=== PATIENT | male | born 1955 | race Caucasian/White ===

== ENCOUNTER 2016-05-13 10:57 | Inpatient (IN) | payer OTHER ==
[~2016-05-13] VITALS: Ht 180.3 cm; Wt 139.3 kg
[~2016-05-13 10:57] MED LIST: APIDRA100 UNIT/1 SC; CARVEDILOL6.25 MG PO; FUROSEMIDE40 MG PO; LANTUS 3 M100 UNITS1 SC; LEVEMIR FL100 UNIT/1 SC; LISINOPRIL20 MG PO; LO-DOSE ASPIRIN81 M1 PO; METFORMIN HCL1000 MG PO; NOVOLOG PE100 UNITS/ SC; SIMVASTATIN10 MG PO; SPIRONOLACTONE25 MG PO; TRAMADOL HCL50 MG PO; TYLENOL PM1 CAPLET PO; VIAGRA50 MG PO; ZYRTEC10 M2 PO
[2016-05-13 11:57] LABS: HEMATOCRIT 43.4 % (38.0-50.0); MCH 28.8 PG (29.0-34.0); MCHC 31.8 G/DL (30.0-36.0); MCV 90.6 FL (86-99); MEAN PLAT.VOLUME 10.2 uM^3 (9.0-12.4); PLATELET COUNT 169 K/uL (156-360); RBC DIS.WIDTH-CV 13.9 % (11.8-14.6); RBC DIS.WIDTH-SD 44.5 % (39-53); RED BLOOD COUNT 4.79 M/uL (4.00-5.50); WHITE BLOOD COUNT 7.5 K/uL (4.1-10.2)
[2016-05-13 12:08] LABS: CHLORIDE 103 mEq/L (99-109); POTASSIUM 4.2 mEq/L (3.7-5.4); SODIUM 137 mEq/L (136-147)
[2016-05-13 12:11] LABS: ANION GAP 9 MEQ/L (2-14)
[2016-05-13 12:14] LABS: GFR ESTIMATE (CALCULATED) 47 mL/min/; GLUCOSE 450 mg/dL (70-99)
[2016-05-13 12:15] LABS: UREA NITROGEN (BUN) 19 mg/dL (9-23)
[2016-05-13 12:17] LABS: TROP-I INTERPRETATION NEGATIVE
[2016-05-13 12:52] LABS: ADD MIUA? YES; BILIRUBIN NEGATIVE; BLOOD MODERATE; COLOR YELLOW ((YELLOW)); GLUCOSE (STRIP) >=1000; KETONES NEGATIVE; LEUKOCYTES NEGATIVE; NITRITE NEGATIVE; PROTEIN (STRIP) >=300; SPECIFIC GRAVITY 1.034 (1.000-1.030)
[2016-05-13 13:23] LABS: RED BLOOD CELLS RARE /HPF (0-5)
[2016-05-13 13:24] LABS: BACTERIA RARE; CASTS NONE SEEN /LPF; CRYSTALS NONE SEEN; EPITHELIAL CELLS NONE SEEN; MUCUS NONE SEEN; UCUL ADDED? NO; WHITE BLOOD CELLS NONE SEEN /HPF (0-5)
[2016-05-13 16:15] VITALS: BP 138/100
[2016-05-13 17:02] LABS: POINT-OF-CARE USER ID NUTSLF44
[2016-05-13 19:10] VITALS: BP 173/84
[2016-05-13 20:03] LABS: TROP-I INTERPRETATION NEGATIVE; TROPONIN-I 0.12 ng/mL (0.0-0.30)
[2016-05-13 21:08] LABS: POINT-OF-CARE METER ID UU14174216
[2016-05-13 23:39] VITALS: BP 186/99
[2016-05-14 04:29] VITALS: BP 162/92
[2016-05-14 07:05] LABS: HEMATOCRIT 41.8 % (38.0-50.0); MCH 28.4 PG (29.0-34.0); MCHC 30.9 G/DL (30.0-36.0); MCV 92.1 FL (86-99); MEAN PLAT.VOLUME 10.2 uM^3 (9.0-12.4); PLATELET COUNT 166 K/uL (156-360); RBC DIS.WIDTH-SD 47.1 % (39-53); RED BLOOD COUNT 4.54 M/uL (4.00-5.50); WHITE BLOOD COUNT 5.7 K/uL (4.1-10.2)
[2016-05-14 07:23] LABS: ALKALINE PHOSPHATASE 57 IU/L (3-129); ANION GAP 7 MEQ/L (2-14); CHLORIDE 101 MEQ/L (99-109); GFR ESTIMATE (CALCULATED) 55 mL/min/; GLUCOSE 222 mg/dL (70-99); HDL CHOLESTEROL 32 MG/DL (Desirable>=40); LDL CHOLESTEROL 89 mg/dL (Desirable<100); MAGNESIUM 1.8 mg/dl (1.3-2.7); NON-HDL CHOLESTEROL 110 mg/dL (Desirable<160); POTASSIUM 3.6 MEQ/L (3.7-5.4); SAMPLE HEMOLYSIS CHECK 0; SAMPLE ICTERIC CHECK 0; SAMPLE LIPEMIA CHECK 0; SODIUM 137 MEQ/L (136-147); TOTAL BILIRUBIN 0.7 MG/DL (0.0-1.0); TOTAL CHOLESTEROL 142 mg/dL (Desirable<200); TRIGLYCERIDES 105 MG/DL (Normal: <150); UREA NITROGEN (BUN) 22 mg/dL (9-23); URIC ACID 8.3 mg/dL (3.1-9.2)
[2016-05-14 07:33] VITALS: BP 137/83
[2016-05-14 07:35] LABS: BASOPHIL COUNT 0.1 K/uL (0-0.1); EOSINOPHIL (%) 8.6 % (0-5); EOSINOPHIL COUNT 0.5 K/uL (0-0.3); IMMATURE GRANULOCYTE (%) 0.2 % (0.0-0.7); MONOCYTE COUNT 1.1 K/uL (0-0.8); NEUTROPHIL (%) 53.5 % (45-76)
[2016-05-14 08:11] LABS: POINT-OF-CARE METER ID UU13113698
[2016-05-14 08:32] LABS: Estimated Average Glucose 415 mg/dL (70-123)
[2016-05-14 08:37] LABS: HEMOGLOBIN A1c (GLYCOHEMOGLOB) 16.1 % HGB (Below 5.7)
[2016-05-14 11:40] LABS: POINT-OF-CARE METER ID UU13113702
[2016-05-14 11:55] VITALS: BP 142/72
[2016-05-14 11:55] LABS: D-DIMER ELISA 0.58 mg/L FEU (< 0.57)
[2016-05-14 16:30] VITALS: BP 140/85
[2016-05-14 19:50] VITALS: BP 143/79
[2016-05-14 22:29] LABS: POINT-OF-CARE METER ID UU13113807; POINT-OF-CARE USER ID AHSUCEG
[2016-05-14 23:35] VITALS: BP 130/70
[2016-05-15 04:05] VITALS: BP 132/80
[2016-05-15 07:27] LABS: EOSINOPHIL (%) 7.5 % (0-5); EOSINOPHIL COUNT 0.5 K/uL (0-0.3); HEMATOCRIT 43.3 % (38.0-50.0); IMMATURE GRANULOCYTE (%) 0.8 % (0.0-0.7); IMMATURE GRANULOCYTE COUNT 0.1 K/uL; LYMPHOCYTE COUNT 0.9 K/uL (1.0-2.8); MCH 28.9 PG (29.0-34.0); MCHC 30.9 G/DL (30.0-36.0); MCV 93.3 FL (86-99); MEAN PLAT.VOLUME 10.8 uM^3 (9.0-12.4); MONOCYTE (%) 15.3 % (3-12); MONOCYTE COUNT 0.9 K/uL (0-0.8); NEUTROPHIL (%) 60.3 % (45-76); NEUTROPHIL COUNT 3.6 K/uL (1.8-6.4); PLATELET COUNT 161 K/uL (156-360); RBC DIS.WIDTH-CV 14.2 % (11.8-14.6); RBC DIS.WIDTH-SD 48.2 % (39-53); RED BLOOD COUNT 4.64 M/uL (4.00-5.50)
[2016-05-15 07:48] LABS: POINT-OF-CARE METER ID UU14149396
[2016-05-15 07:59] LABS: ALKALINE PHOSPHATASE 55 IU/L (3-129); ANION GAP 9 MEQ/L (2-14); CHLORIDE 103 MEQ/L (99-109); GFR ESTIMATE (CALCULATED) 55 mL/min/; GLUCOSE 277 mg/dL (70-99); SAMPLE HEMOLYSIS CHECK 0; SAMPLE ICTERIC CHECK 0; SAMPLE LIPEMIA CHECK 0; SODIUM 137 MEQ/L (136-147); TOTAL BILIRUBIN 0.6 MG/DL (0.0-1.0); UREA NITROGEN (BUN) 20 mg/dL (9-23)
[2016-05-15 08:00] VITALS: BP 136/84
[2016-05-15 08:01] LABS: POTASSIUM 4.9 MEQ/L (3.7-5.4)
[2016-05-15 11:49] LABS: POINT-OF-CARE METER ID UU14149396
[2016-05-15 12:00] VITALS: BP 129/77
[2016-05-15 16:00] VITALS: BP 140/82
[2016-05-15 16:23] LABS: POINT-OF-CARE METER ID UU14149396
[2016-05-15 17:32] LABS: UR CREATININE CONCENTRATION 109.2 MG/DL
[2016-05-15 20:00] VITALS: BP 133/70
[2016-05-15 20:49] LABS: POINT-OF-CARE METER ID UU14149396
[2016-05-16] VITALS: BP 126/77
[2016-05-16 04:00] VITALS: BP 131/79
[2016-05-16 04:22] LABS: HEMATOCRIT 44.6 % (38.0-50.0); MCH 28.9 PG (29.0-34.0); MCHC 31.2 G/DL (30.0-36.0); MCV 92.7 FL (86-99); MEAN PLAT.VOLUME 10.5 uM^3 (9.0-12.4); PLATELET COUNT 177 K/uL (156-360); RBC DIS.WIDTH-SD 45.9 % (39-53); RED BLOOD COUNT 4.81 M/uL (4.00-5.50); WHITE BLOOD COUNT 6.6 K/uL (4.1-10.2)
[2016-05-16 04:30] LABS: EOSINOPHIL (%) 4.8 % (0-5); EOSINOPHIL COUNT 0.3 K/uL (0-0.3); IMMATURE GRANULOCYTE (%) 0.5 % (0.0-0.7); IMMATURE GRANULOCYTE COUNT 0.3 K/uL; LYMPHOCYTE COUNT 1.1 K/uL (1.0-2.8); MONOCYTE (%) 16.2 % (3-12); MONOCYTE COUNT 1.1 K/uL (0-0.8); NEUTROPHIL (%) 61.7 % (45-76); NEUTROPHIL COUNT 4.1 K/uL (1.8-6.4)
[2016-05-16 04:37] LABS: CHLORIDE 102 mEq/L (99-109); POTASSIUM 5.6 mEq/L (3.7-5.4); SODIUM 138 mEq/L (136-147)
[2016-05-16 04:39] LABS: GLUCOSE 219 mg/dL (70-99)
[2016-05-16 04:40] LABS: ANION GAP 9 MEQ/L (2-14)
[2016-05-16 04:41] LABS: TOTAL BILIRUBIN 0.7 mg/dL (0.0-1.0)
[2016-05-16 04:43] LABS: ALKALINE PHOSPHATASE 59 IU/L (3-129); GFR ESTIMATE (CALCULATED) 41 mL/min/
[2016-05-16 04:44] LABS: UREA NITROGEN (BUN) 26 mg/dL (9-23)
[2016-05-16 07:00] VITALS: BP 137/81
[2016-05-16 07:10] LABS: POINT-OF-CARE METER ID UU14149396
[2016-05-16 11:20] LABS: POINT-OF-CARE METER ID UU14149396
[2016-05-16 11:32] VITALS: BP 147/88
[2016-05-16 13:11] LABS: ANION GAP 9 MEQ/L (2-14); CHLORIDE 102 MEQ/L (99-109); GFR ESTIMATE (CALCULATED) 47 mL/min/; GLUCOSE 219 mg/dL (70-99); POTASSIUM 4.5 MEQ/L (3.7-5.4); SAMPLE HEMOLYSIS CHECK 0; SAMPLE ICTERIC CHECK 0; SAMPLE LIPEMIA CHECK 0; SODIUM 138 MEQ/L (136-147); UREA NITROGEN (BUN) 25 mg/dL (9-23)
[2016-05-16 15:00] VITALS: BP 147/95
[2016-05-16 16:12] LABS: POINT-OF-CARE METER ID UU14149398
[2016-05-16 19:40] VITALS: BP 146/77
[2016-05-16 21:26] LABS: POINT-OF-CARE METER ID UU14149398
[2016-05-17] VITALS (7 sets, daily range): BP systolic 122–152; BP diastolic 70–92
[2016-05-17 04:17] LABS: EOSINOPHIL (%) 2.5 % (0-5); EOSINOPHIL COUNT 0.2 K/uL (0-0.3); HEMATOCRIT 45.8 % (38.0-50.0); IMMATURE GRANULOCYTE (%) 0.6 % (0.0-0.7); IMMATURE GRANULOCYTE COUNT 0.4 K/uL; LYMPHOCYTE COUNT 1.4 K/uL (1.0-2.8); MCH 28.7 PG (29.0-34.0); MCHC 31.7 G/DL (30.0-36.0); MCV 90.5 FL (86-99); MEAN PLAT.VOLUME 10.3 uM^3 (9.0-12.4); MONOCYTE (%) 15.3 % (3-12); NEUTROPHIL (%) 58.9 % (45-76); NEUTROPHIL COUNT 3.7 K/uL (1.8-6.4); PLATELET COUNT 174 K/uL (156-360); RBC DIS.WIDTH-SD 45.6 % (39-53); RED BLOOD COUNT 5.06 M/uL (4.00-5.50); WHITE BLOOD COUNT 6.3 K/uL (4.1-10.2)
[2016-05-17 04:38] LABS: CHLORIDE 104 mEq/L (99-109); POTASSIUM 3.9 mEq/L (3.7-5.4); SODIUM 138 mEq/L (136-147)
[2016-05-17 04:40] LABS: GLUCOSE 159 mg/dL (70-99)
[2016-05-17 04:41] LABS: ANION GAP 10 MEQ/L (2-14)
[2016-05-17 04:42] LABS: TOTAL BILIRUBIN 0.8 mg/dL (0.0-1.0)
[2016-05-17 04:44] LABS: ALKALINE PHOSPHATASE 58 IU/L (3-129); GFR ESTIMATE (CALCULATED) 55 mL/min/
[2016-05-17 04:45] LABS: UREA NITROGEN (BUN) 26 mg/dL (9-23)
[2016-05-17 08:08] LABS: POINT-OF-CARE METER ID UU14149398
[2016-05-17 12:01] LABS: POINT-OF-CARE METER ID UU14149396
[2016-05-17 16:28] LABS: POINT-OF-CARE METER ID UU14149396
[2016-05-17 21:39] LABS: POINT-OF-CARE METER ID UU14149396
[2016-05-18 01:37] LABS: C DIFF TOXIN NEGATIVE (NEGATIVE)
[2016-05-18 01:42] LABS: PROBE CHECK PASS; SPECIMEN PROCESSING CONTROL PASS
[2016-05-18 04:50] VITALS: BP 134/83
[2016-05-18 06:34] LABS: BASOPHIL COUNT 0.1 K/uL (0-0.1); EOSINOPHIL (%) 3.8 % (0-5); EOSINOPHIL COUNT 0.3 K/uL (0-0.3); HEMATOCRIT 47.4 % (38.0-50.0); IMMATURE GRANULOCYTE (%) 0.6 % (0.0-0.7); IMMATURE GRANULOCYTE COUNT 0.1 K/uL; LYMPHOCYTE COUNT 1.7 K/uL (1.0-2.8); MCHC 31.2 G/DL (30.0-36.0); MCV 92.9 FL (86-99); MONOCYTE (%) 18.2 % (3-12); MONOCYTE COUNT 1.5 K/uL (0-0.8); NEUTROPHIL (%) 56.5 % (45-76); NEUTROPHIL COUNT 4.6 K/uL (1.8-6.4); PLATELET COUNT 171 K/uL (156-360); RBC DIS.WIDTH-SD 47.8 % (39-53)
[2016-05-18 06:35] LABS: WHITE BLOOD COUNT 8.2 K/uL (4.1-10.2)
[2016-05-18 06:56] LABS: ALKALINE PHOSPHATASE 56 IU/L (3-129); ANION GAP 12 MEQ/L (2-14); CHLORIDE 101 MEQ/L (99-109); GLUCOSE 144 mg/dL (70-99); SAMPLE HEMOLYSIS CHECK 0; SAMPLE ICTERIC CHECK 0; SAMPLE LIPEMIA CHECK 0; SODIUM 140 MEQ/L (136-147); UREA NITROGEN (BUN) 31 mg/dL (9-23)
[2016-05-18 06:57] LABS: GFR ESTIMATE (CALCULATED) 38 mL/min/; TOTAL BILIRUBIN 0.8 MG/DL (0.0-1.0)
[2016-05-18 07:33] LABS: POINT-OF-CARE METER ID UU14149398
[2016-05-18 07:53] VITALS: BP 123/72
[2016-05-18 11:37] LABS: POINT-OF-CARE METER ID UU14149398
[2016-05-18 11:59] VITALS: BP 108/61
[2016-05-18 15:00] VITALS: BP 140/76
[2016-05-18 17:22] LABS: POINT-OF-CARE METER ID UU14149396
[2016-05-18 21:51] LABS: POINT-OF-CARE METER ID UU14149398
[2016-05-19] VITALS (7 sets, daily range): BP systolic 121–174; BP diastolic 40–100
[2016-05-19 07:05] LABS: ANION GAP 15 MEQ/L (2-14); CHLORIDE 100 MEQ/L (99-109); GFR ESTIMATE (CALCULATED) 41 mL/min/; SAMPLE HEMOLYSIS CHECK 1; SAMPLE ICTERIC CHECK 0; SAMPLE LIPEMIA CHECK 0; SODIUM 135 MEQ/L (136-147); UREA NITROGEN (BUN) 37 mg/dL (9-23)
[2016-05-19 07:07] LABS: GLUCOSE 257 mg/dL (70-99); POTASSIUM 4.5 MEQ/L (3.7-5.4)
[2016-05-19 07:52] LABS: POINT-OF-CARE METER ID UU14149396; POINT-OF-CARE USER ID 606021404
[2016-05-19 12:02] LABS: POINT-OF-CARE METER ID UU14149398
[2016-05-19 21:59] LABS: POINT-OF-CARE METER ID UU14149398; POINT-OF-CARE USER ID STWHLR41
[2016-05-20 03:30] VITALS: BP 145/87
[2016-05-20 06:32] LABS: ANION GAP 11 MEQ/L (2-14); CHLORIDE 98 MEQ/L (99-109); GFR ESTIMATE (CALCULATED) 34 mL/min/; GLUCOSE 204 mg/dL (70-99); POTASSIUM 4.4 MEQ/L (3.7-5.4); SAMPLE HEMOLYSIS CHECK 2; SAMPLE ICTERIC CHECK 0; SAMPLE LIPEMIA CHECK 0; SODIUM 139 MEQ/L (136-147); UREA NITROGEN (BUN) 50 mg/dL (9-23)
[2016-05-20 07:48] LABS: POINT-OF-CARE METER ID UU14149398
[2016-05-20 08:02] VITALS: BP 109/71
[2016-05-20 11:37] LABS: POINT-OF-CARE METER ID UU14149396
[2016-05-20 12:29] VITALS: BP 121/76
[2016-05-20 16:15] VITALS: BP 124/88
[2016-05-20 16:54] LABS: POINT-OF-CARE METER ID UU14149398
[2016-05-20 20:00] VITALS: BP 132/71
[2016-05-20 21:49] LABS: POINT-OF-CARE METER ID UU14149398
[2016-05-21] VITALS (7 sets, daily range): BP systolic 115–146; BP diastolic 62–85
[2016-05-21 08:10] LABS: HEMATOCRIT 48.1 % (38.0-50.0); MCHC 31.2 G/DL (30.0-36.0); MCV 89.7 FL (86-99); RBC DIS.WIDTH-CV 13.6 % (11.8-14.6); RBC DIS.WIDTH-SD 44.7 % (39-53); RED BLOOD COUNT 5.36 M/uL (4.00-5.50)
[2016-05-21 08:15] LABS: MEAN PLAT.VOLUME 10.4 uM^3 (9.0-12.4); PLATELET COUNT 243 K/uL (156-360)
[2016-05-21 10:57] LABS: ANION GAP 12 MEQ/L (2-14); CHLORIDE 98 MEQ/L (99-109); POTASSIUM 4.8 MEQ/L (3.7-5.4); SAMPLE HEMOLYSIS CHECK 2; SAMPLE ICTERIC CHECK 0; SAMPLE LIPEMIA CHECK 0; SODIUM 141 MEQ/L (136-147)
[2016-05-21 11:02] LABS: GFR ESTIMATE (CALCULATED) 32 mL/min/; GLUCOSE 190 mg/dL (70-99); UREA NITROGEN (BUN) 60 mg/dL (9-23)
[2016-05-21 11:54] LABS: POINT-OF-CARE METER ID UU14149398; POINT-OF-CARE USER ID 606021404
[2016-05-21 16:55] LABS: POINT-OF-CARE METER ID UU13113807
[2016-05-22 00:09] LABS: POINT-OF-CARE METER ID UU14149398
[2016-05-22 03:59] VITALS: BP 139/60
[2016-05-22 07:17] LABS: ANION GAP 15 MEQ/L (2-14); CHLORIDE 97 MEQ/L (99-109); GFR ESTIMATE (CALCULATED) 34 mL/min/; GLUCOSE 199 mg/dL (70-99); POTASSIUM 4.1 MEQ/L (3.7-5.4); SAMPLE HEMOLYSIS CHECK 0; SAMPLE ICTERIC CHECK 0; SAMPLE LIPEMIA CHECK 0; SODIUM 141 MEQ/L (136-147); UREA NITROGEN (BUN) 62 mg/dL (9-23)
[2016-05-22 08:17] VITALS: BP 129/64
[2016-05-22 08:23] LABS: POINT-OF-CARE METER ID UU14149398
[2016-05-22 11:14] LABS: POINT-OF-CARE METER ID UU14149398
[2016-05-22 12:25] LABS: POINT-OF-CARE METER ID UU14149398
[2016-05-22 12:34] VITALS: BP 128/81
[2016-05-22 16:59] VITALS: BP 130/65
[2016-05-22 17:10] LABS: POINT-OF-CARE METER ID UU14149398
[2016-05-22 20:00] VITALS: BP 167/74
[2016-05-22 21:32] LABS: POINT-OF-CARE METER ID UU14149398
[2016-05-22 23:55] VITALS: BP 142/72
[2016-05-23 03:40] VITALS: BP 117/87
[2016-05-23 05:40] LABS: ANION GAP 13 MEQ/L (2-14); CHLORIDE 99 MEQ/L (99-109); GFR ESTIMATE (CALCULATED) 32 mL/min/; GLUCOSE 167 mg/dL (70-99); POTASSIUM 3.7 MEQ/L (3.7-5.4); SAMPLE HEMOLYSIS CHECK 0; SAMPLE ICTERIC CHECK 0; SAMPLE LIPEMIA CHECK 0; SODIUM 140 MEQ/L (136-147); UREA NITROGEN (BUN) 72 mg/dL (9-23)
[2016-05-23 07:59] VITALS: BP 146/75
[2016-05-23 08:40] LABS: POINT-OF-CARE METER ID UU13113807
[2016-05-23 11:25] VITALS: BP 139/65
[2016-05-23 12:15] LABS: POINT-OF-CARE METER ID UU14149398
[2016-05-23 20:00] VITALS: BP 140/80
[2016-05-23 21:29] LABS: POINT-OF-CARE METER ID UU14149398
[2016-05-23 21:48] LABS: POINT-OF-CARE METER ID UU13113807
[2016-05-24] VITALS (7 sets, daily range): BP systolic 106–145; BP diastolic 66–92
[2016-05-24 07:03] LABS: MCHC 31.3 G/DL (30.0-36.0); MCV 89.5 FL (86-99); MEAN PLAT.VOLUME 10.6 uM^3 (9.0-12.4); PLATELET COUNT 284 K/uL (156-360); RBC DIS.WIDTH-CV 13.8 % (11.8-14.6); RBC DIS.WIDTH-SD 45.3 % (39-53); RED BLOOD COUNT 5.25 M/uL (4.00-5.50); WHITE BLOOD COUNT 7.7 K/uL (4.1-10.2)
[2016-05-24 07:16] LABS: EOSINOPHIL (%) 2.2 % (0-5); EOSINOPHIL COUNT 0.2 K/uL (0-0.3); IMMATURE GRANULOCYTE (%) 0.8 % (0.0-0.7); IMMATURE GRANULOCYTE COUNT 0.1 K/uL; LYMPHOCYTE COUNT 1.4 K/uL (1.0-2.8); MONOCYTE (%) 27.3 % (3-12); MONOCYTE COUNT 2.1 K/uL (0-0.8); NEUTROPHIL (%) 51.2 % (45-76)
[2016-05-24 07:26] LABS: ANION GAP 13 MEQ/L (2-14); CHLORIDE 99 MEQ/L (99-109); GFR ESTIMATE (CALCULATED) 32 mL/min/; GLUCOSE 163 mg/dL (70-99); POTASSIUM 3.7 MEQ/L (3.7-5.4); SAMPLE HEMOLYSIS CHECK 0; SAMPLE ICTERIC CHECK 0; SAMPLE LIPEMIA CHECK 0; SODIUM 138 MEQ/L (136-147); UREA NITROGEN (BUN) 85 mg/dL (9-23)
[2016-05-24 08:24] LABS: POINT-OF-CARE METER ID UU14149398
[2016-05-24 12:28] LABS: POINT-OF-CARE METER ID UU14149398
[2016-05-24 17:01] LABS: POINT-OF-CARE METER ID UU14149398
[2016-05-24 21:00] LABS: POINT-OF-CARE METER ID UU14149398
[2016-05-25 04:02] VITALS: BP 136/82
[2016-05-25 05:55] LABS: POINT-OF-CARE METER ID UU13113807
[2016-05-25 06:11] LABS: HEMATOCRIT 46.6 % (38.0-50.0); MCH 29.4 PG (29.0-34.0); MCHC 32.6 G/DL (30.0-36.0); MCV 90.1 FL (86-99); MEAN PLAT.VOLUME 11.1 uM^3 (9.0-12.4); PLATELET COUNT 273 K/uL (156-360); RBC DIS.WIDTH-CV 13.7 % (11.8-14.6); RBC DIS.WIDTH-SD 45.3 % (39-53); RED BLOOD COUNT 5.17 M/uL (4.00-5.50); WHITE BLOOD COUNT 9.2 K/uL (4.1-10.2)
[2016-05-25 06:30] LABS: ANION GAP 14 MEQ/L (2-14); CHLORIDE 99 MEQ/L (99-109); GFR ESTIMATE (CALCULATED) 32 mL/min/; GLUCOSE 156 mg/dL (70-99); POTASSIUM 3.8 MEQ/L (3.7-5.4); SAMPLE HEMOLYSIS CHECK 0; SAMPLE ICTERIC CHECK 0; SAMPLE LIPEMIA CHECK 0; SODIUM 140 MEQ/L (136-147); UREA NITROGEN (BUN) 94 mg/dL (9-23)
[2016-05-25 07:15] VITALS: BP 94/65
[2016-05-25 07:39] LABS: EOSINOPHIL COUNT 0.1 K/uL (0-0.3); IMMATURE GRANULOCYTE (%) 0.8 % (0.0-0.7); IMMATURE GRANULOCYTE COUNT 0.1 K/uL; MONOCYTE (%) 16.4 % (3-12); MONOCYTE COUNT 1.5 K/uL (0-0.8); NEUTROPHIL (%) 60.1 % (45-76); NEUTROPHIL COUNT 5.5 K/uL (1.8-6.4)
[2016-05-25 08:30] LABS: HEMATOLOGY COMMENT 1 REV; USER ID NJR
[2016-05-25 11:15] VITALS: BP 114/61
[2016-05-25 11:55] LABS: POINT-OF-CARE METER ID UU13113807
[2016-05-25 15:15] VITALS: BP 114/73
[2016-05-25 17:22] LABS: POINT-OF-CARE METER ID UU13113807
[2016-05-25 19:48] VITALS: BP 117/57
[2016-05-25 21:36] LABS: POINT-OF-CARE METER ID UU13113807
[2016-05-25 23:46] VITALS: BP 126/58
[2016-05-26 05:45] VITALS: BP 107/57
[2016-05-26 07:01] LABS: HEMATOCRIT 45.6 % (38.0-50.0); MCH 29.6 PG (29.0-34.0); MCHC 33.1 G/DL (30.0-36.0); MCV 89.4 FL (86-99); MEAN PLAT.VOLUME 10.8 uM^3 (9.0-12.4); PLATELET COUNT 253 K/uL (156-360); RBC DIS.WIDTH-CV 13.8 % (11.8-14.6); RBC DIS.WIDTH-SD 45.2 % (39-53); WHITE BLOOD COUNT 9.3 K/uL (4.1-10.2)
[2016-05-26 07:10] LABS: EOSINOPHIL (%) 1.4 % (0-5); EOSINOPHIL COUNT 0.1 K/uL (0-0.3); IMMATURE GRANULOCYTE COUNT 0.1 K/uL; LYMPHOCYTE COUNT 0.9 K/uL (1.0-2.8); MONOCYTE (%) 24.8 % (3-12); MONOCYTE COUNT 2.3 K/uL (0-0.8); NEUTROPHIL (%) 62.9 % (45-76); NEUTROPHIL COUNT 5.9 K/uL (1.8-6.4)
[2016-05-26 07:20] VITALS: BP 106/59
[2016-05-26 07:47] LABS: ANION GAP 13 MEQ/L (2-14); CHLORIDE 101 MEQ/L (99-109); GFR ESTIMATE (CALCULATED) 25 mL/min/; POTASSIUM 3.9 MEQ/L (3.7-5.4); SAMPLE HEMOLYSIS CHECK 0; SAMPLE ICTERIC CHECK 0; SAMPLE LIPEMIA CHECK 0; SODIUM 139 MEQ/L (136-147)
[2016-05-26 07:50] LABS: GLUCOSE 101 mg/dL (70-99); UREA NITROGEN (BUN) 101 mg/dL (9-23)
[2016-05-26 08:32] LABS: POINT-OF-CARE METER ID UU13113807
[2016-05-26 12:39] LABS: POINT-OF-CARE METER ID UU13113807
[2016-05-26 15:45] VITALS: BP 134/66
[2016-05-26 17:48] LABS: POINT-OF-CARE METER ID UU13113807
[2016-05-26 20:03] VITALS: BP 119/58
[2016-05-26 21:03] LABS: POINT-OF-CARE METER ID UU13113807
[2016-05-27 04:00] VITALS: BP 112/69
[2016-05-27 06:38] LABS: HEMATOCRIT 47.8 % (38.0-50.0); MCH 27.9 PG (29.0-34.0); MCHC 31.2 G/DL (30.0-36.0); MCV 89.5 FL (86-99); MEAN PLAT.VOLUME 10.5 uM^3 (9.0-12.4); PLATELET COUNT 261 K/uL (156-360); RBC DIS.WIDTH-CV 13.9 % (11.8-14.6); RBC DIS.WIDTH-SD 45.3 % (39-53); RED BLOOD COUNT 5.34 M/uL (4.00-5.50); WHITE BLOOD COUNT 11.9 K/uL (4.1-10.2)
[2016-05-27 07:07] LABS: EOSINOPHIL (%) 1.1 % (0-5); EOSINOPHIL COUNT 0.1 K/uL (0-0.3); IMMATURE GRANULOCYTE (%) 1.2 % (0.0-0.7); IMMATURE GRANULOCYTE COUNT 0.1 K/uL; LYMPHOCYTE COUNT 2.2 K/uL (1.0-2.8); MONOCYTE (%) 12.1 % (3-12); MONOCYTE COUNT 1.5 K/uL (0-0.8); NEUTROPHIL (%) 66.8 % (45-76)
[2016-05-27 07:28] LABS: ALKALINE PHOSPHATASE 48 IU/L (3-129); AMYLASE 44 IU/L (1-118); ANION GAP 12 MEQ/L (2-14); CHLORIDE 102 MEQ/L (99-109); GFR ESTIMATE (CALCULATED) 21 mL/min/; GLUCOSE 98 mg/dL (70-99); LIPASE 42 U/L (1.0-51.0); POTASSIUM 3.4 MEQ/L (3.7-5.4); SAMPLE HEMOLYSIS CHECK 0; SAMPLE ICTERIC CHECK 0; SAMPLE LIPEMIA CHECK 0; SODIUM 140 MEQ/L (136-147); TOTAL BILIRUBIN 0.7 MG/DL (0.0-1.0)
[2016-05-27 07:30] LABS: UREA NITROGEN (BUN) 112 mg/dL (9-23)
[2016-05-27 07:45] LABS: PREALBUMIN 11.2 mg/dL (10-40)
[2016-05-27 08:00] VITALS: BP 121/69
[2016-05-27 08:11] LABS: POINT-OF-CARE METER ID UU13113807
[2016-05-27 08:26] LABS: MAGNESIUM 2.2 mg/dl (1.3-2.7)
[2016-05-27 12:00] VITALS: BP 107/53
[2016-05-27 13:12] LABS: POINT-OF-CARE METER ID UU13113807
[2016-05-27 16:13] VITALS: BP 136/59
[2016-05-27 17:13] LABS: POINT-OF-CARE METER ID UU13113807
[2016-05-27 19:55] VITALS: BP 133/80
[2016-05-27 21:42] LABS: POINT-OF-CARE METER ID UU13113807
[2016-05-27 23:25] VITALS: BP 128/70
[2016-05-28 04:18] VITALS: BP 136/62
[2016-05-28 06:48] LABS: HEMATOCRIT 49.8 % (38.0-50.0); MCH 28.6 PG (29.0-34.0); MCHC 32.1 G/DL (30.0-36.0); MCV 89.1 FL (86-99); MEAN PLAT.VOLUME 10.9 uM^3 (9.0-12.4); PLATELET COUNT 238 K/uL (156-360); RBC DIS.WIDTH-CV 13.9 % (11.8-14.6); RBC DIS.WIDTH-SD 45.3 % (39-53); RED BLOOD COUNT 5.59 M/uL (4.00-5.50); WHITE BLOOD COUNT 10.7 K/uL (4.1-10.2)
[2016-05-28 06:57] LABS: EOSINOPHIL (%) 1.3 % (0-5); EOSINOPHIL COUNT 0.1 K/uL (0-0.3); IMMATURE GRANULOCYTE (%) 1.4 % (0.0-0.7); IMMATURE GRANULOCYTE COUNT 0.2 K/uL; LYMPHOCYTE COUNT 1.3 K/uL (1.0-2.8); MONOCYTE (%) 17.4 % (3-12); MONOCYTE COUNT 1.9 K/uL (0-0.8); NEUTROPHIL (%) 67.7 % (45-76); NEUTROPHIL COUNT 7.3 K/uL (1.8-6.4)
[2016-05-28 07:35] LABS: ANION GAP 15 MEQ/L (2-14); CHLORIDE 102 MEQ/L (99-109); GFR ESTIMATE (CALCULATED) 26 mL/min/; GLUCOSE 120 mg/dL (70-99); POTASSIUM 3.6 MEQ/L (3.7-5.4); SAMPLE HEMOLYSIS CHECK 0; SAMPLE ICTERIC CHECK 0; SAMPLE LIPEMIA CHECK 0; SODIUM 141 MEQ/L (136-147)
[2016-05-28 07:36] LABS: UREA NITROGEN (BUN) 113 mg/dL (9-23)
[2016-05-28 07:42] LABS: POINT-OF-CARE METER ID UU13113807
[2016-05-28 07:44] LABS: PH, URINE 5.5 (5-8); PROTEIN (STRIP) 30; SPECIFIC GRAVITY 1.016 (1.000-1.030); UROBILINOGEN 0.2 MG/DL (0.2-1.0)
[2016-05-28 07:45] LABS: ADD MIUA? NO; BILIRUBIN SMALL; BLOOD NEGATIVE; COLOR YELLOW ((YELLOW)); GLUCOSE (STRIP) NEGATIVE; KETONES NEGATIVE; LEUKOCYTES NEGATIVE; NITRITE NEGATIVE; UCUL ADDED? NO
[2016-05-28 08:00] VITALS: BP 118/67
[2016-05-28 11:43] LABS: POINT-OF-CARE METER ID UU14149396
[2016-05-28 12:00] VITALS: BP 144/65
[2016-05-28 16:00] VITALS: BP 139/74
[2016-05-28 16:51] LABS: POINT-OF-CARE METER ID UU13113807
[2016-05-28 21:00] VITALS: BP 154/80
[2016-05-28 21:51] LABS: POINT-OF-CARE METER ID UU14149396
[2016-05-29 04:00] VITALS: BP 135/78
[2016-05-29 08:31] LABS: POINT-OF-CARE METER ID UU13113807
[2016-05-29 08:46] VITALS: BP 136/67
[2016-05-29 09:36] LABS: HEMATOCRIT 45.6 % (38.0-50.0); MCH 27.8 PG (29.0-34.0); MCHC 31.1 G/DL (30.0-36.0); MCV 89.2 FL (86-99); MEAN PLAT.VOLUME 9.9 uM^3 (9.0-12.4); PLATELET COUNT 210 K/uL (156-360); RBC DIS.WIDTH-CV 13.7 % (11.8-14.6); RBC DIS.WIDTH-SD 44.6 % (39-53); RED BLOOD COUNT 5.11 M/uL (4.00-5.50); WHITE BLOOD COUNT 11.7 K/uL (4.1-10.2)
[2016-05-29 09:41] LABS: EOSINOPHIL (%) 1.7 % (0-5); EOSINOPHIL COUNT 0.2 K/uL (0-0.3); IMMATURE GRANULOCYTE (%) 1.2 % (0.0-0.7); IMMATURE GRANULOCYTE COUNT 0.1 K/uL; LYMPHOCYTE COUNT 1.7 K/uL (1.0-2.8); MONOCYTE (%) 4.7 % (3-12); MONOCYTE COUNT 0.6 K/uL (0-0.8); NEUTROPHIL COUNT 9.1 K/uL (1.8-6.4)
[2016-05-29 10:17] LABS: ANION GAP 13 MEQ/L (2-14); CHLORIDE 103 MEQ/L (99-109); GFR ESTIMATE (CALCULATED) 29 mL/min/; GLUCOSE 152 mg/dL (70-99); POTASSIUM 3.3 MEQ/L (3.7-5.4); SAMPLE HEMOLYSIS CHECK 0; SAMPLE ICTERIC CHECK 0; SAMPLE LIPEMIA CHECK 0; SODIUM 142 MEQ/L (136-147)
[2016-05-29 10:18] LABS: UREA NITROGEN (BUN) 107 mg/dL (9-23)
[2016-05-29 12:07] LABS: POINT-OF-CARE METER ID UU14149398
[2016-05-29 12:10] VITALS: BP 105/55
[2016-05-29 16:58] LABS: C DIFF TOXIN ND (NEGATIVE)
[2016-05-29 19:06] VITALS: BP 125/60
[2016-05-29 19:11] LABS: POINT-OF-CARE METER ID UU14149398
[2016-05-29 19:45] VITALS: BP 158/84
[2016-05-29 23:33] LABS: POINT-OF-CARE METER ID UU14149398
[2016-05-29 23:40] VITALS: BP 136/84
[2016-05-30 03:50] VITALS: BP 127/66
[2016-05-30 04:41] LABS: EOSINOPHIL (%) 1.6 % (0-5); EOSINOPHIL COUNT 0.2 K/uL (0-0.3); HEMATOCRIT 45.7 % (38.0-50.0); IMMATURE GRANULOCYTE (%) 0.8 % (0.0-0.7); IMMATURE GRANULOCYTE COUNT 0.9 K/uL; LYMPHOCYTE COUNT 1.2 K/uL (1.0-2.8); MCH 28.3 PG (29.0-34.0); MCHC 32.2 G/DL (30.0-36.0); MCV 88.1 FL (86-99); MONOCYTE (%) 12.1 % (3-12); MONOCYTE COUNT 1.4 K/uL (0-0.8); NEUTROPHIL (%) 75.7 % (45-76); PLATELET COUNT 213 K/uL (156-360); RBC DIS.WIDTH-CV 13.6 % (11.8-14.6); RBC DIS.WIDTH-SD 43.9 % (39-53); RED BLOOD COUNT 5.19 M/uL (4.00-5.50); WHITE BLOOD COUNT 11.8 K/uL (4.1-10.2)
[2016-05-30 04:56] LABS: CHLORIDE 106 mEq/L (99-109); POTASSIUM 3.1 mEq/L (3.7-5.4); SODIUM 139 mEq/L (136-147)
[2016-05-30 04:57] LABS: GLUCOSE 168 mg/dL (70-99)
[2016-05-30 04:59] LABS: ANION GAP 13 MEQ/L (2-14)
[2016-05-30 05:01] LABS: GFR ESTIMATE (CALCULATED) 31 mL/min/
[2016-05-30 05:21] LABS: UREA NITROGEN (BUN) 107 mg/dL (9-23)
[2016-05-30 08:19] LABS: POINT-OF-CARE METER ID UU14149398
[2016-05-30 08:41] VITALS: BP 139/73
[2016-05-30 11:42] LABS: POINT-OF-CARE METER ID UU14149398
[2016-05-30 12:40] VITALS: BP 116/60
[2016-05-30 16:24] VITALS: BP 123/57
[2016-05-30 17:52] LABS: POINT-OF-CARE METER ID UU14149398
[2016-05-30 20:06] VITALS: BP 140/80
[2016-05-30 21:27] LABS: POINT-OF-CARE METER ID UU14149398
[2016-05-31 00:01] VITALS: BP 115/58
[2016-05-31 01:37] LABS: C DIFF TOXIN NEGATIVE (NEGATIVE)
[2016-05-31 01:39] LABS: PROBE CHECK PASS; SPECIMEN PROCESSING CONTROL PASS
[2016-05-31 03:44] VITALS: BP 129/56
[2016-05-31 05:55] LABS: MCH 28.7 PG (29.0-34.0); MCHC 31.8 G/DL (30.0-36.0); MCV 90.4 FL (86-99); MEAN PLAT.VOLUME 10.6 uM^3 (9.0-12.4); PLATELET COUNT 191 K/uL (156-360); RBC DIS.WIDTH-CV 13.7 % (11.8-14.6); RBC DIS.WIDTH-SD 45.3 % (39-53); RED BLOOD COUNT 4.98 M/uL (4.00-5.50)
[2016-05-31 05:57] LABS: ANION GAP 12 MEQ/L (2-14); CHLORIDE 106 MEQ/L (99-109); GFR ESTIMATE (CALCULATED) 32 mL/min/; GLUCOSE 139 mg/dL (70-99); POTASSIUM 3.2 MEQ/L (3.7-5.4); SAMPLE HEMOLYSIS CHECK 0; SAMPLE ICTERIC CHECK 0; SAMPLE LIPEMIA CHECK 0; SODIUM 140 MEQ/L (136-147); UREA NITROGEN (BUN) 97 mg/dL (9-23)
[2016-05-31 06:09] LABS: EOSINOPHIL (%) 1.5 % (0-5); EOSINOPHIL COUNT 0.2 K/uL (0-0.3); IMMATURE GRANULOCYTE (%) 0.9 % (0.0-0.7); IMMATURE GRANULOCYTE COUNT 0.1 K/uL; LYMPHOCYTE COUNT 1.8 K/uL (1.0-2.8); MONOCYTE (%) 4.9 % (3-12); MONOCYTE COUNT 0.6 K/uL (0-0.8); NEUTROPHIL (%) 78.6 % (45-76); NEUTROPHIL COUNT 10.2 K/uL (1.8-6.4)
[2016-05-31 07:51] VITALS: BP 107/64
[2016-05-31 08:51] LABS: POINT-OF-CARE METER ID UU14149398
[2016-05-31 12:10] LABS: POINT-OF-CARE METER ID UU14149398
[2016-05-31 12:19] VITALS: BP 119/73
[2016-05-31 16:15] VITALS: BP 127/69
[2016-05-31 17:41] LABS: POINT-OF-CARE METER ID UU14149398
[2016-05-31 19:35] VITALS: BP 148/78
[2016-05-31 21:43] LABS: POINT-OF-CARE METER ID UU14149398
[2016-06-01] VITALS (7 sets, daily range): BP systolic 104–146; BP diastolic 63–80
[2016-06-01 07:02] LABS: HEMATOCRIT 43.5 % (38.0-50.0); MCH 28.8 PG (29.0-34.0); MCHC 31.7 G/DL (30.0-36.0); MCV 90.6 FL (86-99); MEAN PLAT.VOLUME 10.1 uM^3 (9.0-12.4); PLATELET COUNT 171 K/uL (156-360); RBC DIS.WIDTH-CV 13.8 % (11.8-14.6); RBC DIS.WIDTH-SD 46.1 % (39-53); WHITE BLOOD COUNT 11.5 K/uL (4.1-10.2)
[2016-06-01 07:32] LABS: EOSINOPHIL (%) 1.6 % (0-5); EOSINOPHIL COUNT 0.2 K/uL (0-0.3); IMMATURE GRANULOCYTE (%) 0.7 % (0.0-0.7); IMMATURE GRANULOCYTE COUNT 0.1 K/uL; LYMPHOCYTE COUNT 1.2 K/uL (1.0-2.8); MONOCYTE (%) 5.7 % (3-12); MONOCYTE COUNT 0.7 K/uL (0-0.8); NEUTROPHIL (%) 81.1 % (45-76); NEUTROPHIL COUNT 9.3 K/uL (1.8-6.4)
[2016-06-01 07:42] LABS: ANION GAP 13 MEQ/L (2-14); CHLORIDE 107 MEQ/L (99-109); GFR ESTIMATE (CALCULATED) 32 mL/min/; POTASSIUM 3.3 MEQ/L (3.7-5.4); SAMPLE HEMOLYSIS CHECK 0; SAMPLE ICTERIC CHECK 0; SAMPLE LIPEMIA CHECK 0; SODIUM 141 MEQ/L (136-147); UREA NITROGEN (BUN) 99 mg/dL (9-23)
[2016-06-01 07:43] LABS: GLUCOSE 72 mg/dL (70-99)
[2016-06-01 12:28] LABS: POINT-OF-CARE METER ID UU13113807; POINT-OF-CARE USER ID 606021404
[2016-06-01 16:32] LABS: POINT-OF-CARE METER ID UU13113807; POINT-OF-CARE USER ID 606021404
[2016-06-01 21:06] LABS: POINT-OF-CARE METER ID UU14149398
[2016-06-02 03:33] VITALS: BP 140/66
[2016-06-02 06:30] LABS: ANION GAP 11 MEQ/L (2-14); CHLORIDE 108 MEQ/L (99-109); GFR ESTIMATE (CALCULATED) 27 mL/min/; POTASSIUM 3.4 MEQ/L (3.7-5.4); SAMPLE HEMOLYSIS CHECK 0; SAMPLE ICTERIC CHECK 0; SAMPLE LIPEMIA CHECK 0; SODIUM 141 MEQ/L (136-147); UREA NITROGEN (BUN) 96 mg/dL (9-23)
[2016-06-02 06:31] LABS: GLUCOSE 131 mg/dL (70-99)
[2016-06-02 07:09] LABS: ABS NEUTROPHIL COUNT 4.84; ANISOCYTOSIS 1+; EOSINOPHIL ABS CT 0.13; HEMATOCRIT 43.4 % (38.0-50.0); MACROCYTES 1+; MCH 27.8 PG (29.0-34.0); MCHC 30.6 G/DL (30.0-36.0); MCV 90.6 FL (86-99); MEAN PLAT.VOLUME 10.6 uM^3 (9.0-12.4); NRBC (%) 0.5 /100 WBC (0-0); OVALOCYTES 1+; PLAT.SUFFICIENCY ADEQUATE; PLATELET COUNT 137 K/uL (156-360); RBC DIS.WIDTH-CV 13.9 % (11.8-14.6); RBC DIS.WIDTH-SD 45.9 % (39-53); RED BLOOD COUNT 4.79 M/uL (4.00-5.50); TEAR DROP CELLS OCC
[2016-06-02 07:12] LABS: WHITE BLOOD COUNT 6.3 K/uL (4.1-10.2)
[2016-06-02 07:13] LABS: DELETE MACHINE DIFF? YES
[2016-06-02 08:42] LABS: MAGNESIUM 2.2 mg/dl (1.3-2.7)
[2016-06-02 09:23] VITALS: BP 110/53
[2016-06-02 09:24] LABS: POINT-OF-CARE METER ID UU14149398; POINT-OF-CARE USER ID 606021404
[2016-06-02 12:25] VITALS: BP 135/63
[2016-06-02 12:37] LABS: POINT-OF-CARE METER ID UU14149398; POINT-OF-CARE USER ID 606021404
[2016-06-02 16:52] VITALS: BP 110/59
[2016-06-02 16:57] LABS: POINT-OF-CARE METER ID UU14149398; POINT-OF-CARE USER ID 606021404
[2016-06-02 18:04] LABS: POINT-OF-CARE METER ID UU14149398; POINT-OF-CARE USER ID 606021404
[2016-06-02 19:56] VITALS: BP 119/75
[2016-06-02 21:51] LABS: POINT-OF-CARE METER ID UU14149398
[2016-06-03 04:39] VITALS: BP 118/62
[2016-06-03 07:44] VITALS: BP 108/59
[2016-06-03 08:23] LABS: POINT-OF-CARE METER ID UU13113807
[2016-06-03 10:27] LABS: HEMATOCRIT 44.5 % (38.0-50.0); MCH 27.7 PG (29.0-34.0); MCHC 30.8 G/DL (30.0-36.0); MCV 89.9 FL (86-99); PLATELET COUNT 128 K/uL (156-360); RBC DIS.WIDTH-CV 14.3 % (11.8-14.6); RBC DIS.WIDTH-SD 46.4 % (39-53); RED BLOOD COUNT 4.95 M/uL (4.00-5.50); WHITE BLOOD COUNT 6.8 K/uL (4.1-10.2)
[2016-06-03 10:32] LABS: EOSINOPHIL (%) 1.9 % (0-5); EOSINOPHIL COUNT 0.1 K/uL (0-0.3); IMMATURE GRANULOCYTE (%) 0.3 % (0.0-0.7); LYMPHOCYTE COUNT 1.5 K/uL (1.0-2.8); MONOCYTE (%) 14.6 % (3-12); NEUTROPHIL (%) 61.5 % (45-76); NEUTROPHIL COUNT 4.2 K/uL (1.8-6.4)
[2016-06-03 12:49] LABS: POINT-OF-CARE METER ID UU13113807
[2016-06-03 16:19] VITALS: BP 121/62
[2016-06-03 16:20] LABS: POINT-OF-CARE METER ID UU13113807
[2016-06-03 19:20] VITALS: BP 105/52
[2016-06-03 20:42] LABS: ANION GAP 12 MEQ/L (2-14); CHLORIDE 106 MEQ/L (99-109); POTASSIUM 3.1 MEQ/L (3.7-5.4); SAMPLE HEMOLYSIS CHECK 0; SAMPLE ICTERIC CHECK 0; SAMPLE LIPEMIA CHECK 0; SODIUM 140 MEQ/L (136-147)
[2016-06-03 20:52] LABS: GFR ESTIMATE (CALCULATED) 26 mL/min/; GLUCOSE 173 mg/dL (70-99)
[2016-06-03 20:56] LABS: UREA NITROGEN (BUN) 101 mg/dL (9-23)
[2016-06-03 22:10] LABS: POINT-OF-CARE METER ID UU13113807
[2016-06-03 22:52] VITALS: BP 106/58
[2016-06-03 23:10] VITALS: BP 106/58
[2016-06-04 08:55] VITALS: BP 106/65
[2016-06-04 08:55] LABS: ANION GAP 9 MEQ/L (2-14); CHLORIDE 108 MEQ/L (99-109); GFR ESTIMATE (CALCULATED) 27 mL/min/; POTASSIUM 2.8 MEQ/L (3.7-5.4); SAMPLE HEMOLYSIS CHECK 0; SAMPLE ICTERIC CHECK 0; SAMPLE LIPEMIA CHECK 0; SODIUM 140 MEQ/L (136-147); UREA NITROGEN (BUN) 96 mg/dL (9-23)
[2016-06-04 08:56] LABS: GLUCOSE 61 mg/dL (70-99)
[2016-06-04 09:02] LABS: HEMATOCRIT 40.5 % (38.0-50.0); MCHC 31.6 G/DL (30.0-36.0); MCV 88.6 FL (86-99); MEAN PLAT.VOLUME 10.7 uM^3 (9.0-12.4); PLATELET COUNT 148 K/uL (156-360); RBC DIS.WIDTH-SD 45.4 % (39-53); RED BLOOD COUNT 4.57 M/uL (4.00-5.50); WHITE BLOOD COUNT 8.4 K/uL (4.1-10.2)
[2016-06-04 09:07] LABS: POINT-OF-CARE METER ID UU13113807; POINT-OF-CARE USER ID 606021404
[2016-06-04 12:17] LABS: POINT-OF-CARE METER ID UU13113807; POINT-OF-CARE USER ID 606021404
[2016-06-04 13:50] LABS: ANION GAP 10 MEQ/L (2-14); CHLORIDE 107 MEQ/L (99-109); GFR ESTIMATE (CALCULATED) 27 mL/min/; POTASSIUM 3.1 MEQ/L (3.7-5.4); SAMPLE HEMOLYSIS CHECK 0; SAMPLE ICTERIC CHECK 0; SAMPLE LIPEMIA CHECK 0; SODIUM 139 MEQ/L (136-147); UREA NITROGEN (BUN) 93 mg/dL (9-23)
[2016-06-04] MEDS ORDERED: METRONIDAZOLE500 MG PO (13:55)
[2016-06-04] MEDS ORDERED: ATORVASTATIN CA40 MG PO (13:55)
[2016-06-04] MEDS ORDERED: K-DUR20 MEQ PO (13:55)
[2016-06-04] MEDS ORDERED: CARVEDILOL12.5 MG PO (13:55)
[2016-06-04] MEDS ORDERED: Lomotil,Lonox PO (13:55)
[2016-06-04] MEDS ORDERED: ADVAIR HFA120 INHALA IH (13:55)
[2016-06-04] MEDS ORDERED: FUROSEMIDE20 MG PO (13:55)
[2016-06-04] MEDS ORDERED: LEVEMIR100 UNIT/2 SC (13:55)
[2016-06-04] MEDS ORDERED: LORATADINE10 M2 PO (13:55)
[2016-06-04] MEDS ORDERED: ASPIR 8181 M1 PO (14:02)
[2016-06-04 14:04] LABS: GLUCOSE 124 mg/dL (70-99)
[2016-06-04] MEDS ORDERED: LISINOPRIL2.5 MG PO (14:04)
[2016-06-04 15:58] VITALS: BP 138/71
[2016-06-04 16:16] VITALS: BP 123/65
[2016-06-04 16:23] LABS: POINT-OF-CARE METER ID UU13113807; POINT-OF-CARE USER ID 606021404
[2016-06-04 21:54] LABS: POINT-OF-CARE METER ID UU13113807
[2016-06-04 23:21] VITALS: BP 118/55
[2016-06-05 03:30] LABS: POINT-OF-CARE METER ID UU13113807
[2016-06-05 07:10] VITALS: BP 115/76
[2016-06-05 08:05] LABS: POINT-OF-CARE METER ID UU13113807
[2016-06-05 09:12] LABS: ANION GAP 10 MEQ/L (2-14); CHLORIDE 105 MEQ/L (99-109); POTASSIUM 3.1 MEQ/L (3.7-5.4); SAMPLE HEMOLYSIS CHECK 0; SAMPLE ICTERIC CHECK 0; SAMPLE LIPEMIA CHECK 0; SODIUM 137 MEQ/L (136-147)
[2016-06-05 09:18] LABS: GFR ESTIMATE (CALCULATED) 32 mL/min/; GLUCOSE 144 mg/dL (70-99); UREA NITROGEN (BUN) 78 mg/dL (9-23)
[2016-06-05 11:38] LABS: POINT-OF-CARE METER ID UU13113807
[2016-06-05 15:32] VITALS: BP 136/63
[2016-06-05 16:41] LABS: POINT-OF-CARE METER ID UU13113807
[2016-06-05 21:48] LABS: POINT-OF-CARE METER ID UU13113807
[2016-06-05 23:10] VITALS: BP 124/60
[2016-06-06 07:21] LABS: POINT-OF-CARE METER ID UU14149396
[2016-06-06 07:43] VITALS: BP 128/73
[2016-06-06 11:20] LABS: POINT-OF-CARE METER ID UU14149396
[2016-06-06 20:15] VITALS: BP 142/65
[2016-06-06 21:55] LABS: POINT-OF-CARE USER ID 611181321
[2016-06-06 23:29] VITALS: BP 115/61
[2016-06-07 02:48] VITALS: BP 130/61
[2016-06-07 07:54] VITALS: BP 150/73
[2016-06-07 11:30] LABS: POINT-OF-CARE METER ID UU13113725
[2016-06-07 11:36] VITALS: BP 152/75
[2016-06-07 15:18] VITALS: BP 112/69
[2016-06-07 16:49] LABS: POINT-OF-CARE METER ID UU13113725
[2016-06-07 19:29] VITALS: BP 157/86
[2016-06-07 21:12] LABS: POINT-OF-CARE METER ID UU13113725
[2016-06-07 23:28] VITALS: BP 140/83
[2016-06-08 03:19] VITALS: BP 136/76
[2016-06-08 08:44] VITALS: BP 158/82
[2016-06-08 09:29] LABS: ANION GAP 9 MEQ/L (2-14); CHLORIDE 115 MEQ/L (99-109); GFR ESTIMATE (CALCULATED) 47 mL/min/; GLUCOSE 177 mg/dL (70-99); POTASSIUM 4.1 MEQ/L (3.7-5.4); SAMPLE HEMOLYSIS CHECK 0; SAMPLE ICTERIC CHECK 0; SAMPLE LIPEMIA CHECK 0; SODIUM 146 MEQ/L (136-147); UREA NITROGEN (BUN) 34 mg/dL (9-23)
[2016-06-08 11:04] LABS: HPCA INDEX 0.16
[2016-06-08 11:05] LABS: ANTI-HEPATITIS A VIRUS (IGM) Nonreactive; ANTI-HEPATITIS B CORE (IGM) Nonreactive; HAV INDEX 0.16; HBC IgM INDEX 0.12
[2016-06-08 12:39] LABS: EOSINOPHIL (%) 0.8 % (0-5); EOSINOPHIL COUNT 0.1 K/uL (0-0.3); HEMATOCRIT 40.6 % (38.0-50.0); IMMATURE GRANULOCYTE (%) 0.4 % (0.0-0.7); IMMATURE GRANULOCYTE COUNT 0.1 K/uL; LYMPHOCYTE COUNT 1.5 K/uL (1.0-2.8); MCH 28.5 PG (29.0-34.0); MCHC 31.8 G/DL (30.0-36.0); MCV 89.6 FL (86-99); MONOCYTE (%) 5.3 % (3-12); NEUTROPHIL (%) 85.5 % (45-76); NEUTROPHIL COUNT 15.9 K/uL (1.8-6.4); PLATELET COUNT 158 K/uL (156-360); RBC DIS.WIDTH-CV 14.4 % (11.8-14.6); RBC DIS.WIDTH-SD 46.8 % (39-53); RED BLOOD COUNT 4.53 M/uL (4.00-5.50)
[2016-06-08 12:40] LABS: WHITE BLOOD COUNT 18.5 K/uL (4.1-10.2)
[2016-06-08 13:28] LABS: ANION GAP 10 MEQ/L (2-14); CHLORIDE 116 MEQ/L (99-109); GFR ESTIMATE (CALCULATED) 55 mL/min/; GLUCOSE 193 mg/dL (70-99); POTASSIUM 4.2 MEQ/L (3.7-5.4); SAMPLE HEMOLYSIS CHECK 0; SAMPLE ICTERIC CHECK 0; SAMPLE LIPEMIA CHECK 0; SODIUM 147 MEQ/L (136-147); UREA NITROGEN (BUN) 33 mg/dL (9-23)
[2016-06-08 16:05] VITALS: BP 131/81
[2016-06-08 19:35] VITALS: BP 186/82
[2016-06-08 23:47] VITALS: BP 163/79
[2016-06-09 04:05] VITALS: BP 136/69
[2016-06-09 06:50] LABS: EOSINOPHIL (%) 0.7 % (0-5); EOSINOPHIL COUNT 0.1 K/uL (0-0.3); HEMATOCRIT 41.5 % (38.0-50.0); IMMATURE GRANULOCYTE (%) 0.4 % (0.0-0.7); IMMATURE GRANULOCYTE COUNT 0.1 K/uL; LYMPHOCYTE COUNT 1.3 K/uL (1.0-2.8); MCH 28.8 PG (29.0-34.0); MCHC 31.8 G/DL (30.0-36.0); MCV 90.6 FL (86-99); MEAN PLAT.VOLUME 10.4 uM^3 (9.0-12.4); MONOCYTE (%) 8.2 % (3-12); MONOCYTE COUNT 1.3 K/uL (0-0.8); NEUTROPHIL (%) 82.4 % (45-76); NEUTROPHIL COUNT 13.2 K/uL (1.8-6.4); PLATELET COUNT 173 K/uL (156-360); RBC DIS.WIDTH-CV 14.5 % (11.8-14.6); RBC DIS.WIDTH-SD 47.2 % (39-53); RED BLOOD COUNT 4.58 M/uL (4.00-5.50)
[2016-06-09 07:18] LABS: ANION GAP 11 MEQ/L (2-14); CHLORIDE 116 MEQ/L (99-109); GFR ESTIMATE (CALCULATED) 50 mL/min/; GLUCOSE 233 mg/dL (70-99); POTASSIUM 3.8 MEQ/L (3.7-5.4); SAMPLE HEMOLYSIS CHECK 0; SAMPLE ICTERIC CHECK 0; SAMPLE LIPEMIA CHECK 0; SODIUM 148 MEQ/L (136-147); UREA NITROGEN (BUN) 31 mg/dL (9-23)
[2016-06-09 08:03] VITALS: BP 150/78
[2016-06-09 11:33] LABS: POINT-OF-CARE METER ID UU13113725
[2016-06-09 11:39] VITALS: BP 147/83
[2016-06-09 16:33] VITALS: BP 130/69
[2016-06-09 19:21] VITALS: BP 153/82
[2016-06-09 20:47] LABS: POINT-OF-CARE METER ID UU13113725
[2016-06-09 22:38] VITALS: BP 131/72
[2016-06-10 05:34] LABS: POINT-OF-CARE METER ID UU13113725
[2016-06-10 06:50] LABS: HEMATOCRIT 41.6 % (38.0-50.0); MCH 28.7 PG (29.0-34.0); MCHC 31.5 G/DL (30.0-36.0); MEAN PLAT.VOLUME 10.2 uM^3 (9.0-12.4); PLATELET COUNT 193 K/uL (156-360); RBC DIS.WIDTH-CV 14.6 % (11.8-14.6); RBC DIS.WIDTH-SD 48.4 % (39-53); RED BLOOD COUNT 4.57 M/uL (4.00-5.50)
[2016-06-10 07:15] LABS: ANION GAP 12 MEQ/L (2-14); CHLORIDE 113 MEQ/L (99-109); GFR ESTIMATE (CALCULATED) 47 mL/min/; GLUCOSE 136 mg/dL (70-99); SAMPLE HEMOLYSIS CHECK 0; SAMPLE ICTERIC CHECK 0; SAMPLE LIPEMIA CHECK 0; SODIUM 148 MEQ/L (136-147); UREA NITROGEN (BUN) 30 mg/dL (9-23)
[2016-06-10 07:17] LABS: EOSINOPHIL (%) 2.3 % (0-5); EOSINOPHIL COUNT 0.4 K/uL (0-0.3); IMMATURE GRANULOCYTE (%) 0.4 % (0.0-0.7); IMMATURE GRANULOCYTE COUNT 0.1 K/uL; LYMPHOCYTE COUNT 1.5 K/uL (1.0-2.8); MONOCYTE (%) 9.5 % (3-12); MONOCYTE COUNT 1.6 K/uL (0-0.8); NEUTROPHIL (%) 78.8 % (45-76); NEUTROPHIL COUNT 13.4 K/uL (1.8-6.4)
[2016-06-10 08:21] VITALS: BP 137/79
[2016-06-10 11:47] LABS: POINT-OF-CARE METER ID UU13113725
[2016-06-10 11:51] VITALS: BP 103/70
[2016-06-10 17:09] VITALS: BP 188/84
[2016-06-10 19:35] VITALS: BP 148/92
[2016-06-10 23:39] VITALS: BP 139/94
[2016-06-11 06:05] LABS: POINT-OF-CARE METER ID UU13113725
[2016-06-11 06:50] LABS: HEMATOCRIT 39.9 % (38.0-50.0); MCH 27.7 PG (29.0-34.0); MCHC 30.3 G/DL (30.0-36.0); MCV 91.3 FL (86-99); MEAN PLAT.VOLUME 9.7 uM^3 (9.0-12.4); PLATELET COUNT 170 K/uL (156-360); RBC DIS.WIDTH-CV 14.6 % (11.8-14.6); RBC DIS.WIDTH-SD 48.6 % (39-53); RED BLOOD COUNT 4.37 M/uL (4.00-5.50); WHITE BLOOD COUNT 14.5 K/uL (4.1-10.2)
[2016-06-11 07:20] LABS: ANION GAP 10 MEQ/L (2-14); CHLORIDE 114 MEQ/L (99-109); GFR ESTIMATE (CALCULATED) 47 mL/min/; GLUCOSE 152 mg/dL (70-99); POTASSIUM 3.8 MEQ/L (3.7-5.4); SAMPLE HEMOLYSIS CHECK 0; SAMPLE ICTERIC CHECK 0; SAMPLE LIPEMIA CHECK 0; SODIUM 148 MEQ/L (136-147); UREA NITROGEN (BUN) 29 mg/dL (9-23)
[2016-06-11 08:24] VITALS: BP 124/75
[2016-06-11 11:17] VITALS: BP 157/73
[2016-06-11 16:05] VITALS: BP 127/69
[2016-06-11 20:07] VITALS: BP 143/89
[2016-06-11 23:52] VITALS: BP 139/77
[2016-06-12 04:13] VITALS: BP 129/62
[2016-06-12 07:05] LABS: HEMATOCRIT 41.1 % (38.0-50.0); MCH 27.7 PG (29.0-34.0); MCHC 30.4 G/DL (30.0-36.0); MCV 91.1 FL (86-99); MEAN PLAT.VOLUME 9.8 uM^3 (9.0-12.4); PLATELET COUNT 173 K/uL (156-360); RBC DIS.WIDTH-CV 14.6 % (11.8-14.6); RBC DIS.WIDTH-SD 48.2 % (39-53); RED BLOOD COUNT 4.51 M/uL (4.00-5.50)
[2016-06-12 07:06] LABS: WHITE BLOOD COUNT 9.1 K/uL (4.1-10.2)
[2016-06-12 07:42] LABS: ANION GAP 9 MEQ/L (2-14); CHLORIDE 108 MEQ/L (99-109); GFR ESTIMATE (CALCULATED) 47 mL/min/; GLUCOSE 474 mg/dL (70-99); SAMPLE HEMOLYSIS CHECK 0; SAMPLE ICTERIC CHECK 0; SAMPLE LIPEMIA CHECK 0; UREA NITROGEN (BUN) 32 mg/dL (9-23)
[2016-06-12 07:43] LABS: POTASSIUM 5.2 MEQ/L (3.7-5.4); SODIUM 138 MEQ/L (136-147); VANCOMYCIN, TROUGH 21.9 MCG/ML (10-20)
[2016-06-12 09:07] VITALS: BP 136/89
[2016-06-12 12:29] LABS: POINT-OF-CARE METER ID UU13113725
[2016-06-12 12:29] LABS: POINT-OF-CARE METER ID UU13113725
[2016-06-12 17:04] LABS: ANION GAP 10 MEQ/L (2-14); CHLORIDE 106 MEQ/L (99-109); GFR ESTIMATE (CALCULATED) 41 mL/min/; POTASSIUM 5.5 MEQ/L (3.7-5.4); SAMPLE HEMOLYSIS CHECK 0; SAMPLE ICTERIC CHECK 0; SAMPLE LIPEMIA CHECK 0; SODIUM 135 MEQ/L (136-147); UREA NITROGEN (BUN) 36 mg/dL (9-23)
[2016-06-12 17:05] LABS: GLUCOSE 564 mg/dL (70-99)
[2016-06-12 17:25] LABS: ADD MIUA? YES; BILIRUBIN NEGATIVE; BLOOD TRACE; COLOR YELLOW ((YELLOW)); GLUCOSE (STRIP) >=1000; KETONES NEGATIVE; LEUKOCYTES NEGATIVE; NITRITE NEGATIVE; PH, URINE 5.5 (5-8); PROTEIN (STRIP) 100; SPECIFIC GRAVITY 1.036 (1.000-1.030); UROBILINOGEN 0.2 MG/DL (0.2-1.0)
[2016-06-12 17:43] LABS: WHITE BLOOD CELLS 0-5 /HPF (0-5)
[2016-06-12 17:44] LABS: EPITHELIAL CELLS RARE /HPF
[2016-06-12 17:45] LABS: BACTERIA 2+ /HPF; CASTS PRESENT /LPF; CRYSTALS PRESENT; MUCUS RARE /LPF
[2016-06-12 17:46] LABS: HYALINE CASTS 0-5 /LPF
[2016-06-12 17:47] LABS: AMORPHOUS URATES CRYSTALS 2+; FINE GRANULAR CASTS 0-5 /LPF
[2016-06-12 22:58] VITALS: BP 162/86
[2016-06-13 07:14] LABS: HEMATOCRIT 38.7 % (38.0-50.0); MCV 90.2 FL (86-99); MEAN PLAT.VOLUME 9.7 uM^3 (9.0-12.4); PLATELET COUNT 201 K/uL (156-360); RBC DIS.WIDTH-CV 14.4 % (11.8-14.6); RBC DIS.WIDTH-SD 47.2 % (39-53); RED BLOOD COUNT 4.29 M/uL (4.00-5.50); WHITE BLOOD COUNT 11.7 K/uL (4.1-10.2)
[2016-06-13 07:27] VITALS: BP 162/84
[2016-06-13 07:38] LABS: ANION GAP 7 MEQ/L (2-14); CHLORIDE 110 MEQ/L (99-109); GFR ESTIMATE (CALCULATED) 47 mL/min/; GLUCOSE 315 mg/dL (70-99); POTASSIUM 4.7 MEQ/L (3.7-5.4); SAMPLE HEMOLYSIS CHECK 0; SAMPLE ICTERIC CHECK 0; SAMPLE LIPEMIA CHECK 0; SODIUM 136 MEQ/L (136-147); UREA NITROGEN (BUN) 38 mg/dL (9-23)
[2016-06-13 11:52] LABS: POINT-OF-CARE METER ID UU13113725
[2016-06-13 15:49] VITALS: BP 111/65
[2016-06-13 16:43] LABS: POINT-OF-CARE METER ID UU13113725
[2016-06-13 23:19] VITALS: BP 161/86
[2016-06-14 06:51] LABS: HEMATOCRIT 38.7 % (38.0-50.0); MCHC 32.6 G/DL (30.0-36.0); MEAN PLAT.VOLUME 9.8 uM^3 (9.0-12.4); PLATELET COUNT 226 K/uL (156-360); RBC DIS.WIDTH-SD 45.9 % (39-53); RED BLOOD COUNT 4.35 M/uL (4.00-5.50); WHITE BLOOD COUNT 10.4 K/uL (4.1-10.2)
[2016-06-14 07:18] LABS: ANION GAP 7 MEQ/L (2-14); CHLORIDE 107 MEQ/L (99-109); GFR ESTIMATE (CALCULATED) 50 mL/min/; GLUCOSE 297 mg/dL (70-99); MAGNESIUM 1.6 mg/dl (1.3-2.7); POTASSIUM 4.6 MEQ/L (3.7-5.4); SAMPLE HEMOLYSIS CHECK 0; SAMPLE ICTERIC CHECK 0; SAMPLE LIPEMIA CHECK 0; SODIUM 135 MEQ/L (136-147); UREA NITROGEN (BUN) 42 mg/dL (9-23); VANCOMYCIN, TROUGH 29.3 MCG/ML (10-20)
[2016-06-14 08:05] VITALS: BP 157/79
[2016-06-14 16:56] VITALS: BP 160/70
[2016-06-14 21:40] LABS: POINT-OF-CARE METER ID UU13113725
[2016-06-14 22:44] VITALS: BP 126/60
[2016-06-15 05:46] LABS: POINT-OF-CARE METER ID UU13113725
[2016-06-15 07:21] LABS: HEMATOCRIT 39.3 % (38.0-50.0); MCH 27.6 PG (29.0-34.0); MCHC 31.6 G/DL (30.0-36.0); MCV 87.3 FL (86-99); MEAN PLAT.VOLUME 9.9 uM^3 (9.0-12.4); PLATELET COUNT 244 K/uL (156-360); RBC DIS.WIDTH-CV 13.9 % (11.8-14.6); RBC DIS.WIDTH-SD 43.8 % (39-53); WHITE BLOOD COUNT 8.4 K/uL (4.1-10.2)
[2016-06-15 07:46] LABS: ANION GAP 9 MEQ/L (2-14); CHLORIDE 105 MEQ/L (99-109); GFR ESTIMATE (CALCULATED) 55 mL/min/; GLUCOSE 216 mg/dL (70-99); MAGNESIUM 1.7 mg/dl (1.3-2.7); POTASSIUM 4.4 MEQ/L (3.7-5.4); SAMPLE HEMOLYSIS CHECK 0; SAMPLE ICTERIC CHECK 0; SAMPLE LIPEMIA CHECK 0; SODIUM 136 MEQ/L (136-147); UREA NITROGEN (BUN) 38 mg/dL (9-23)
[2016-06-15 07:50] LABS: VANCOMYCIN, TROUGH 19.8 MCG/ML (10-20)
[2016-06-15 08:49] VITALS: BP 171/126
[2016-06-15 12:02] LABS: POINT-OF-CARE METER ID UU13113725
[2016-06-15 20:50] LABS: POINT-OF-CARE USER ID 608261329
[2016-06-15 22:48] VITALS: BP 149/71
[2016-06-16 09:00] VITALS: BP 145/83
[2016-06-16 11:56] LABS: POINT-OF-CARE METER ID UU13113725
[2016-06-16] MEDS ORDERED: ZYVOX600 MG PO (15:45)
[2016-06-16] MEDS ORDERED: PREDNISONE5 MG PO (15:45)
[2016-06-16] MEDS ORDERED: LISINOPRIL5 MG PO (15:45)
[2016-06-16] MEDS ORDERED: NOVOLOG PE100 UNITS/ SC (15:45)
[2016-06-16] MEDS ORDERED: LANTUS 10100 UNITS/ SC (15:45)
[2016-06-16] MEDS ORDERED: ASPIR-LOW81 MG PO (15:45)
[2016-06-16 16:00] VITALS: BP 124/95
[2016-06-16 16:12] LABS: POINT-OF-CARE METER ID UU13113725
[2016-06-16 22:52] VITALS: BP 122/56
[2016-06-17] MEDS ORDERED: BREO ELLIPTA I1 EACH IH (07:41)
[2016-06-17 08:09] VITALS: BP 182/108
[2016-06-17 09:31] VITALS: BP 139/72
[2016-06-17 11:40] VITALS: BP 145/89
== END 2016-06-17 12:55 | disposition home health service (06) | DRG 291 ==
LOC: EME 10:57 → 4EAST 13:28 → EDOF 13:28 → 4EAST 16:19 → 4SOUTH 05-14 11:10 → 5EAST 06-06 15:46
PROVIDERS: Emergency Medicine; Hospitalist; Internal Medicine; Internal Medicine Hematology & Oncology; Internal Medicine Nephrology; Nurse Practitioner Adult Health; Physician Assistant; Physician Assistant Medical; Student in an Organized Health Care Education/Training Program; Surgery
PROC: 8E0ZXY6 Isolation (ICD-10-PCS; principal; 2016-06-13)
DX: I50.23 Acute on chronic systolic (congestive) heart failure (principal); J96.01 Acute respiratory failure with hypoxia; J18.9 Pneumonia, unspecified organism; J15.212 Pneumonia due to Methicillin resistant Staphylococcus aureus; N17.9 Acute kidney failure, unspecified; Z68.42 Body mass index [BMI] 45.0-49.9, adult; I42.9 Cardiomyopathy, unspecified; I13.0 Hypertensive heart and chronic kidney disease with heart failure and stage 1 through stage 4 chronic kidney disease, or unspecified chronic kidney disease; J45.901 Unspecified asthma with (acute) exacerbation; K42.0 Umbilical hernia with obstruction, without gangrene; Z91.128 Patient's intentional underdosing of medication regimen for other reason; E66.01 Morbid (severe) obesity due to excess calories; N18.3 Chronic kidney disease, stage 3 (moderate); G47.33 Obstructive sleep apnea (adult) (pediatric); E87.5 Hyperkalemia; E11.65 Type 2 diabetes mellitus with hyperglycemia; E87.70 Fluid overload, unspecified; E78.2 Mixed hyperlipidemia; K40.20 Bilateral inguinal hernia, without obstruction or gangrene, not specified as recurrent; Z60.2 Problems related to living alone; I44.0 Atrioventricular block, first degree; N20.0 Calculus of kidney; F43.20 Adjustment disorder, unspecified; E88.09 Other disorders of plasma-protein metabolism, not elsewhere classified; K59.1 Functional diarrhea; K76.1 Chronic passive congestion of liver; D69.6 Thrombocytopenia, unspecified; E11.22 Type 2 diabetes mellitus with diabetic chronic kidney disease; E87.6 Hypokalemia; F17.290 Nicotine dependence, other tobacco product, uncomplicated; Z88.0 Allergy status to penicillin; Z79.4 Long term (current) use of insulin; Z82.49 Family history of ischemic heart disease and other diseases of the circulatory system; Z80.0 Family history of malignant neoplasm of digestive organs
CPT/HCPCS: 71020; 71250; 74020; 74176; 76705; 76770; 78582; 80048; 80048 91; 80053; 80061; 80074; 80202; 81003; 82150; 82565; 82570; 82607; 82746; 82948; 83036; 83605; 83690; 83735; 83880; 84100; 84132; 84132 91; 84134; 84156; 84484; 84550; 84999; 85025; 85027; 85379; 86038; 87070; 87077; 87086; 87147; 87177; 87186; 87205; 87493; 87506; 93005; 93306; 93970; 94640; 94640 76; 94760; 99202; 99281; 99284; A9540; A9567; G0378; J0456; J0692; J1644; J1815; J1940; J1956; J2405; J2765; J2920; J3370; J3475; J3480; J7040; J7050; J7120; J7512

== ENCOUNTER 2016-06-18 12:20 | Emergency (ER) | payer OTHER ==
[~2016-06-18] VITALS: Ht 180.3 cm; Wt 142.7 kg
[~2016-06-18 12:20] MED LIST changes: +ADVAIR HFA120 INHALA IH; +ASPIR 8181 M1 PO; +ASPIR-LOW81 MG PO; +ATORVASTATIN CA40 MG PO; +BREO ELLIPTA I1 EACH IH; +CARVEDILOL12.5 MG PO; +FUROSEMIDE20 MG PO; +K-DUR20 MEQ PO; +LANTUS 10100 UNITS/ SC; +LEVEMIR100 UNIT/2 SC; +LISINOPRIL2.5 MG PO; +LISINOPRIL5 MG PO; +LORATADINE10 M2 PO; +Lomotil,Lonox PO; +METRONIDAZOLE500 MG PO; +PREDNISONE5 MG PO; +ZYVOX600 MG PO
[2016-06-18 14:48] LABS: CHLORIDE 105 mEq/L (99-109); POTASSIUM 4.5 mEq/L (3.7-5.4); SODIUM 141 mEq/L (136-147)
[2016-06-18 14:50] LABS: GLUCOSE 112 mg/dL (70-99)
[2016-06-18 14:51] LABS: ANION GAP 10 MEQ/L (2-14)
[2016-06-18 14:54] LABS: GFR ESTIMATE (CALCULATED) 50 mL/min/
[2016-06-18 14:55] LABS: UREA NITROGEN (BUN) 26 mg/dL (9-23)
[2016-06-18 15:01] LABS: TROP-I INTERPRETATION NEGATIVE; TROPONIN-I 0.03 ng/mL (0.0-0.30)
[2016-06-18 15:15] LABS: HEMATOCRIT 45.1 % (38.0-50.0); MCH 28.1 PG (29.0-34.0); MCHC 32.4 G/DL (30.0-36.0); MCV 86.7 FL (86-99); PLATELET COUNT 383 K/uL (156-360); RBC DIS.WIDTH-CV 14.5 % (11.8-14.6); RBC DIS.WIDTH-SD 44.1 % (39-53); WHITE BLOOD COUNT 18.6 K/uL (4.1-10.2)
[2016-06-18 17:02] VITALS: BP 162/74
== END 2016-06-18 17:04 ==
LOC: EME 12:20
PROVIDERS: Emergency Medicine
DX: J18.9 Pneumonia, unspecified organism (principal); R53.1 Weakness; J45.909 Unspecified asthma, uncomplicated; I10 Essential (primary) hypertension; K21.9 Gastro-esophageal reflux disease without esophagitis; Z87.442 Personal history of urinary calculi
CPT/HCPCS: 71020; 80048; 83880; 84484; 85027; 99281; 99284; G8978 GP CH; G8979 GP CH; G8980 GP CH; G8987 GO CH; G8988 GO CH; G8989 GO CH

== ENCOUNTER 2016-09-09 16:38 | Emergency (ER) | payer OTHER ==
[~2016-09-09] VITALS: Ht 182.9 cm; Wt 116.3 kg
[2016-09-09] MEDS ORDERED: FLONASE16 G1 BOTH NARES (17:23)
[2016-09-09] MEDS ORDERED: CLARITIN-D 21 TABLET PO (17:23)
[2016-09-09 17:43] VITALS: BP 00/00
== END 2016-09-09 17:44 | disposition home or self-care (01) ==
LOC: EME 16:38
DX: R00.1 Bradycardia, unspecified (principal); R05 Cough; R09.81 Nasal congestion
CPT/HCPCS: 99281; 99284

== ENCOUNTER 2016-11-18 16:24 | Inpatient (IN) | payer OTHER ==
[~2016-11-18] VITALS: Ht 182.9 cm; Wt 151.0 kg
[~2016-11-18 16:24] MED LIST changes: +CLARITIN-D 21 TABLET PO; +FLONASE16 G1 BOTH NARES
[2016-11-18 17:02] LABS: HEMATOCRIT 44.4 % (38.0-50.0); MCH 26.7 PG (29.0-34.0); MCHC 29.5 G/DL (30.0-36.0); MCV 90.6 FL (86-99); MEAN PLAT.VOLUME 10.1 uM^3 (9.0-12.4); PLATELET COUNT 154 K/uL (156-360); RBC DIS.WIDTH-CV 14.9 % (11.8-14.6); RBC DIS.WIDTH-SD 49.8 % (39-53); WHITE BLOOD COUNT 8.8 K/uL (4.1-10.2)
[2016-11-18 17:11] LABS: CHLORIDE 99 mEq/L (99-109); POTASSIUM 5.3 mEq/L (3.7-5.4); SODIUM 134 mEq/L (136-147)
[2016-11-18 17:14] LABS: ANION GAP 10 MEQ/L (2-14)
[2016-11-18 17:15] LABS: GLUCOSE 663 mg/dL (70-99)
[2016-11-18 17:16] LABS: GFR ESTIMATE (CALCULATED) 36 mL/min/
[2016-11-18 17:17] LABS: UREA NITROGEN (BUN) 32 mg/dL (9-23)
[2016-11-18 17:25] LABS: TROP-I INTERPRETATION NEGATIVE; TROPONIN-I 0.02 ng/mL (0.0-0.30)
[2016-11-18] MEDS ORDERED: CLARITIN,ALAVAR10 MG PO (19:44)
[2016-11-18] MEDS ORDERED: LO-DOSE ASPIRIN81 M2 PO (19:45)
[2016-11-18] MEDS ORDERED: LISINOPRIL5 MG PO (19:45)
[2016-11-18] MEDS ORDERED: LANTUS 10100 UNITS/ SC (19:46)
[2016-11-18] MEDS ORDERED: NOVOLOG 10100 UNITS/ SC (19:46)
[2016-11-18] MEDS ORDERED: LASIX80 MG PO (19:47)
[2016-11-18 22:15] LABS: POINT-OF-CARE METER ID UU13113747
[2016-11-18 23:16] VITALS: BP 148/70
[2016-11-19 07:32] LABS: POINT-OF-CARE METER ID UU14174225
[2016-11-19 07:53] VITALS: BP 121/81
[2016-11-19 12:39] VITALS: BP 135/78
[2016-11-19 12:48] LABS: POINT-OF-CARE METER ID UU14174225
[2016-11-19 15:15] VITALS: BP 148/75
[2016-11-19 16:52] LABS: POINT-OF-CARE METER ID UU14174225
[2016-11-19 19:53] VITALS: BP 141/76
[2016-11-19 23:31] VITALS: BP 144/79
[2016-11-20 04:11] VITALS: BP 137/80
[2016-11-20 05:51] LABS: HEMATOCRIT 43.7 % (38.0-50.0); MCH 27.3 PG (29.0-34.0); MCHC 30.9 G/DL (30.0-36.0); MCV 88.5 FL (86-99); MEAN PLAT.VOLUME 10.6 uM^3 (9.0-12.4); PLATELET COUNT 172 K/uL (156-360); RBC DIS.WIDTH-CV 14.9 % (11.8-14.6); RED BLOOD COUNT 4.94 M/uL (4.00-5.50); WHITE BLOOD COUNT 9.3 K/uL (4.1-10.2)
[2016-11-20 06:20] LABS: ANION GAP 8 MEQ/L (2-14); CHLORIDE 98 MEQ/L (99-109); GFR ESTIMATE (CALCULATED) 50 mL/min/; POTASSIUM 4.4 MEQ/L (3.7-5.4); SAMPLE HEMOLYSIS CHECK 0; SAMPLE ICTERIC CHECK 0; SAMPLE LIPEMIA CHECK 0; SODIUM 137 MEQ/L (136-147); UREA NITROGEN (BUN) 31 mg/dL (9-23)
[2016-11-20 06:31] LABS: GLUCOSE 183 mg/dL (70-99)
[2016-11-20 08:00] LABS: POINT-OF-CARE METER ID UU14174225
[2016-11-20 08:36] VITALS: BP 117/57
[2016-11-20 11:12] VITALS: BP 148/71
[2016-11-20 12:25] LABS: POINT-OF-CARE METER ID UU14174225
[2016-11-20 15:07] VITALS: BP 106/69
[2016-11-20 16:46] LABS: POINT-OF-CARE METER ID UU14174225
[2016-11-20 19:42] VITALS: BP 156/73
[2016-11-20 21:27] LABS: POINT-OF-CARE METER ID UU14174225
[2016-11-20 23:47] VITALS: BP 149/77
[2016-11-21 04:06] VITALS: BP 150/79
[2016-11-21 06:30] LABS: ANION GAP 5 MEQ/L (2-14); CHLORIDE 98 MEQ/L (99-109); GFR ESTIMATE (CALCULATED) 47 mL/min/; GLUCOSE 199 mg/dL (70-99); POTASSIUM 4.8 MEQ/L (3.7-5.4); SAMPLE HEMOLYSIS CHECK 1; SAMPLE ICTERIC CHECK 0; SAMPLE LIPEMIA CHECK 0; SODIUM 138 MEQ/L (136-147); UREA NITROGEN (BUN) 30 mg/dL (9-23)
[2016-11-21 07:40] VITALS: BP 152/77
[2016-11-21 11:15] LABS: POINT-OF-CARE METER ID UU14188625
[2016-11-21 11:16] VITALS: BP 123/64
[2016-11-21 14:20] VITALS: BP 161/76
[2016-11-21 16:46] LABS: POINT-OF-CARE METER ID UU14188625
[2016-11-21 20:11] VITALS: BP 162/74
[2016-11-21 20:54] LABS: POINT-OF-CARE METER ID UU14188625
[2016-11-21 23:36] VITALS: BP 151/76
[2016-11-22 04:11] VITALS: BP 144/74
[2016-11-22 07:13] LABS: ANION GAP 10 MEQ/L (2-14); CHLORIDE 100 MEQ/L (99-109); GFR ESTIMATE (CALCULATED) 55 mL/min/; GLUCOSE 178 mg/dL (70-99); POTASSIUM 4.4 MEQ/L (3.7-5.4); SAMPLE HEMOLYSIS CHECK 0; SAMPLE ICTERIC CHECK 0; SAMPLE LIPEMIA CHECK 0; SODIUM 139 MEQ/L (136-147); UREA NITROGEN (BUN) 29 mg/dL (9-23)
[2016-11-22 07:51] VITALS: BP 135/89
[2016-11-22 11:24] VITALS: BP 150/76
[2016-11-22 11:55] LABS: POINT-OF-CARE METER ID UU13113717
[2016-11-22 16:12] VITALS: BP 160/67
[2016-11-22 17:13] LABS: POINT-OF-CARE METER ID UU13113717
[2016-11-22 19:47] VITALS: BP 158/74
[2016-11-23 03:27] VITALS: BP 154/74
[2016-11-23 07:20] VITALS: BP 139/76
[2016-11-23 08:06] LABS: POINT-OF-CARE METER ID UU13113717
[2016-11-23 10:49] LABS: MCH 26.1 PG (29.0-34.0); MCHC 29.8 G/DL (30.0-36.0); MCV 87.6 FL (86-99); MEAN PLAT.VOLUME 9.7 uM^3 (9.0-12.4); PLATELET COUNT 165 K/uL (156-360); RBC DIS.WIDTH-CV 14.9 % (11.8-14.6); RBC DIS.WIDTH-SD 48.2 % (39-53); RED BLOOD COUNT 5.02 M/uL (4.00-5.50); WHITE BLOOD COUNT 7.9 K/uL (4.1-10.2)
[2016-11-23 11:14] LABS: ANION GAP 5 MEQ/L (2-14); CHLORIDE 96 MEQ/L (99-109); GFR ESTIMATE (CALCULATED) 55 mL/min/; POTASSIUM 4.6 MEQ/L (3.7-5.4); SAMPLE HEMOLYSIS CHECK 0; SAMPLE ICTERIC CHECK 0; SAMPLE LIPEMIA CHECK 0; SODIUM 139 MEQ/L (136-147); UREA NITROGEN (BUN) 25 mg/dL (9-23)
[2016-11-23 11:15] LABS: GLUCOSE 295 mg/dL (70-99)
[2016-11-23 12:02] VITALS: BP 139/63
[2016-11-23 16:03] VITALS: BP 147/62
[2016-11-23 16:47] LABS: POINT-OF-CARE METER ID UU14188625
[2016-11-23 19:50] VITALS: BP 161/68
[2016-11-23 23:38] VITALS: BP 153/73
[2016-11-24 03:32] LABS: CHLORIDE 99 mEq/L (99-109); POTASSIUM 4.4 mEq/L (3.7-5.4); SODIUM 140 mEq/L (136-147)
[2016-11-24 03:33] LABS: MAGNESIUM 1.7 mg/dL (1.3-2.7)
[2016-11-24 03:35] LABS: GLUCOSE 305 mg/dL (70-99)
[2016-11-24 03:36] LABS: ANION GAP 11 MEQ/L (2-14)
[2016-11-24 03:38] LABS: GFR ESTIMATE (CALCULATED) 44 mL/min/
[2016-11-24 03:39] LABS: UREA NITROGEN (BUN) 29 mg/dL (9-23)
[2016-11-24 04:11] VITALS: BP 121/87
[2016-11-24 07:41] VITALS: BP 129/71
[2016-11-24 11:29] VITALS: BP 139/70
[2016-11-24 15:19] VITALS: BP 148/75
[2016-11-24 16:13] LABS: ADD MIUA? NO; BILIRUBIN NEGATIVE; BLOOD NEGATIVE; COLOR YELLOW ((YELLOW)); GLUCOSE (STRIP) >=500; KETONES NEGATIVE; LEUKOCYTES NEGATIVE; NITRITE NEGATIVE; PROTEIN (STRIP) 30; SPECIFIC GRAVITY 1.007 (1.000-1.030); UCUL ADDED? NO; UROBILINOGEN 0.2 MG/DL (0.2-1.0)
[2016-11-24 17:07] LABS: POINT-OF-CARE METER ID UU14188625
[2016-11-24 19:51] VITALS: BP 103/68
[2016-11-24 21:18] LABS: POINT-OF-CARE METER ID UU13113717
[2016-11-24 23:30] VITALS: BP 105/68; BP 137/69
[2016-11-25 04:07] VITALS: BP 133/64
[2016-11-25 07:02] LABS: ANION GAP 5 MEQ/L (2-14); CHLORIDE 98 MEQ/L (99-109); GFR ESTIMATE (CALCULATED) 50 mL/min/; GLUCOSE 284 mg/dL (70-99); POTASSIUM 4.2 MEQ/L (3.7-5.4); SAMPLE HEMOLYSIS CHECK 0; SAMPLE ICTERIC CHECK 0; SAMPLE LIPEMIA CHECK 0; SODIUM 138 MEQ/L (136-147); UREA NITROGEN (BUN) 29 mg/dL (9-23)
[2016-11-25 07:43] LABS: POINT-OF-CARE METER ID UU14188625
[2016-11-25 08:18] VITALS: BP 131/67
[2016-11-25 11:29] LABS: POINT-OF-CARE METER ID UU14188625
[2016-11-25 12:00] VITALS: BP 129/66
[2016-11-25 16:11] VITALS: BP 162/72
[2016-11-25 17:01] LABS: POINT-OF-CARE METER ID UU14188625
[2016-11-25 19:36] VITALS: BP 165/71
[2016-11-25 21:16] LABS: POINT-OF-CARE METER ID UU14174225
[2016-11-25 23:41] VITALS: BP 149/74
[2016-11-26 03:40] VITALS: BP 144/79
[2016-11-26 06:39] LABS: ANION GAP 7 MEQ/L (2-14); CHLORIDE 98 MEQ/L (99-109); GFR ESTIMATE (CALCULATED) > 59 mL/min/; GLUCOSE 223 mg/dL (70-99); POTASSIUM 4.5 MEQ/L (3.7-5.4); SAMPLE HEMOLYSIS CHECK 0; SAMPLE ICTERIC CHECK 0; SAMPLE LIPEMIA CHECK 0; SODIUM 137 MEQ/L (136-147); UREA NITROGEN (BUN) 27 mg/dL (9-23)
[2016-11-26 07:27] LABS: POINT-OF-CARE METER ID UU13113717
[2016-11-26 07:34] VITALS: BP 143/71
[2016-11-26] MEDS ORDERED: LANTUS 10100 UNITS/ SC (09:34)
[2016-11-26] MEDS ORDERED: NOVOLOG 10100 UNITS/ SC (09:34)
[2016-11-26] MEDS ORDERED: LOSARTAN POTAS100 MG PO (09:34)
[2016-11-26] MEDS ORDERED: BUMETANIDE1 MG PO (09:39)
[2016-11-26 11:51] LABS: POINT-OF-CARE METER ID UU13113717
[2016-11-26 12:05] VITALS: BP 159/87
[2016-11-26 12:19] LABS: POINT-OF-CARE METER ID UU14174225
== END 2016-11-26 11:04 | disposition home or self-care (01) | DRG 291 ==
LOC: EME 16:24 → EDOF 19:41 → 5SOUTH 19:41
PROVIDERS: Hospitalist; Nurse Practitioner Adult Health; Physician Assistant Medical
DX: I13.0 Hypertensive heart and chronic kidney disease with heart failure and stage 1 through stage 4 chronic kidney disease, or unspecified chronic kidney disease (principal); I50.23 Acute on chronic systolic (congestive) heart failure; N17.9 Acute kidney failure, unspecified; N18.3 Chronic kidney disease, stage 3 (moderate); E11.22 Type 2 diabetes mellitus with diabetic chronic kidney disease; E11.65 Type 2 diabetes mellitus with hyperglycemia; Z91.120 Patient's intentional underdosing of medication regimen due to financial hardship; Z91.19 Patient's noncompliance with other medical treatment and regimen; R00.1 Bradycardia, unspecified; R62.7 Adult failure to thrive; I48.91 Unspecified atrial fibrillation; I44.1 Atrioventricular block, second degree; I42.9 Cardiomyopathy, unspecified; G47.33 Obstructive sleep apnea (adult) (pediatric); E66.01 Morbid (severe) obesity due to excess calories; Z68.42 Body mass index [BMI] 45.0-49.9, adult; I25.10 Atherosclerotic heart disease of native coronary artery without angina pectoris; E78.5 Hyperlipidemia, unspecified; J45.909 Unspecified asthma, uncomplicated; K21.9 Gastro-esophageal reflux disease without esophagitis; F32.9 Major depressive disorder, single episode, unspecified; R04.0 Epistaxis; T50.2X5A Adverse effect of carbonic-anhydrase inhibitors, benzothiadiazides and other diuretics, initial encounter; H91.90 Unspecified hearing loss, unspecified ear; Z59.9 Problem related to housing and economic circumstances, unspecified; Z79.4 Long term (current) use of insulin; Z86.73 Personal history of transient ischemic attack (TIA), and cerebral infarction without residual deficits
CPT/HCPCS: 71010; 71020; 71250; 78582; 80048; 81003; 82948; 83735; 83880; 84100; 84484; 85027; 93005; 93970; 94660; 99281; 99284; A9540; A9567; J1650; J1815; J1940

== ENCOUNTER → 2016-12-18 | Outpatient (CLI) | payer OTHER ==
[~2016-12-18] MED LIST changes: +BUMETANIDE1 MG PO; +CLARITIN,ALAVAR10 MG PO; +LASIX80 MG PO; +LO-DOSE ASPIRIN81 M2 PO; +LOSARTAN POTAS100 MG PO; +NOVOLOG 10100 UNITS/ SC
== END | disposition home or self-care (01) ==
LOC: RAD 15:10
DX: I51.7 Cardiomegaly (principal); R91.8 Other nonspecific abnormal finding of lung field
CPT/HCPCS: 71020

== ENCOUNTER 2017-02-15 11:59 | Inpatient (IN) | payer OTHER ==
[~2017-02-15] VITALS: Ht 182.9 cm; Wt 153.4 kg
[2017-02-15 13:27] LABS: HEMATOCRIT 43.6 % (38.0-50.0); MCH 28.2 PG (29.0-34.0); MCHC 30.7 G/DL (30.0-36.0); MCV 91.6 FL (86-99); MEAN PLAT.VOLUME 9.6 uM^3 (9.0-12.4); PLATELET COUNT 152 K/uL (156-360); RBC DIS.WIDTH-CV 17.9 % (11.8-14.6); RBC DIS.WIDTH-SD 60.8 % (39-53); RED BLOOD COUNT 4.76 M/uL (4.00-5.50); WHITE BLOOD COUNT 9.7 K/uL (4.1-10.2)
[2017-02-15 13:37] LABS: CHLORIDE 103 mEq/L (99-109); POTASSIUM 4.5 mEq/L (3.7-5.4); SODIUM 138 mEq/L (136-147)
[2017-02-15 13:40] LABS: ANION GAP 8 MEQ/L (2-14)
[2017-02-15 13:43] LABS: GFR ESTIMATE (CALCULATED) 41 mL/min/; GLUCOSE 419 mg/dL (70-99)
[2017-02-15 13:44] LABS: UREA NITROGEN (BUN) 42 mg/dL (9-23)
[2017-02-15 13:51] LABS: TROP-I INTERPRETATION NEGATIVE; TROPONIN-I 0.03 ng/mL (0.0-0.30)
[2017-02-15] MEDS ORDERED: COZAAR100 MG PO (16:06)
[2017-02-15] MEDS ORDERED: SINGULAIR10 MG PO (16:07)
[2017-02-15] MEDS ORDERED: ALDACTONE50 MG PO (16:07)
[2017-02-15] MEDS ORDERED: LASIX80 MG PO ×2 (16:07→16:08)
[2017-02-15] MEDS ORDERED: COREG3.125 M1 PO (16:07)
[2017-02-15 16:22] LABS: POINT-OF-CARE METER ID UU14100415
[2017-02-15 20:24] LABS: ADD MIUA? YES; BILIRUBIN NEGATIVE; BLOOD SMALL; COLOR STRAW ((YELLOW)); GLUCOSE (STRIP) 150; KETONES NEGATIVE; LEUKOCYTES NEGATIVE; NITRITE NEGATIVE; PROTEIN (STRIP) 30; UROBILINOGEN 0.2 MG/DL (0.2-1.0)
[2017-02-15 20:30] LABS: UCUL ADDED? NO
[2017-02-15 20:39] LABS: BACTERIA NONE SEEN /HPF; EPITHELIAL CELLS NONE SEEN /HPF; HYALINE CASTS 0-5 /LPF; MUCUS TRACE /LPF; RED BLOOD CELLS 0-5 /HPF (0-5); WHITE BLOOD CELLS 0-5 /HPF (0-5)
[2017-02-15 20:41] LABS: TROP-I INTERPRETATION NEGATIVE; TROPONIN-I 0.04 ng/mL (0.0-0.30)
[2017-02-15 21:18] VITALS: BP 148/63
[2017-02-15 21:50] LABS: POINT-OF-CARE METER ID UU14188577
[2017-02-15 23:41] VITALS: BP 173/77
[2017-02-16 01:43] LABS: MCH 28.2 PG (29.0-34.0); MCHC 30.9 G/DL (30.0-36.0); MCV 91.3 FL (86-99); MEAN PLAT.VOLUME 9.5 uM^3 (9.0-12.4); PLATELET COUNT 163 K/uL (156-360); RBC DIS.WIDTH-SD 60.4 % (39-53); RED BLOOD COUNT 4.82 M/uL (4.00-5.50); WHITE BLOOD COUNT 10.7 K/uL (4.1-10.2)
[2017-02-16 01:59] LABS: CHLORIDE 100 mEq/L (99-109); POTASSIUM 4.4 mEq/L (3.7-5.4); SODIUM 137 mEq/L (136-147)
[2017-02-16 02:00] LABS: GLUCOSE 339 mg/dL (70-99)
[2017-02-16 02:02] LABS: ANION GAP 8 MEQ/L (2-14)
[2017-02-16 02:04] LABS: GFR ESTIMATE (CALCULATED) 36 mL/min/
[2017-02-16 02:05] LABS: UREA NITROGEN (BUN) 47 mg/dL (9-23)
[2017-02-16 02:13] LABS: TROP-I INTERPRETATION NEGATIVE; TROPONIN-I 0.05 ng/mL (0.0-0.30)
[2017-02-16 05:09] VITALS: BP 198/97
[2017-02-16 06:16] LABS: POINT-OF-CARE METER ID UU14208753
[2017-02-16 08:11] VITALS: BP 156/76
[2017-02-16 11:17] LABS: POINT-OF-CARE METER ID UU14188577
[2017-02-16 11:55] VITALS: BP 138/62
[2017-02-16 15:57] VITALS: BP 166/79
[2017-02-16 16:30] LABS: POINT-OF-CARE METER ID UU14188577
[2017-02-16 19:29] VITALS: BP 172/95
[2017-02-16 21:42] LABS: POINT-OF-CARE METER ID UU14188577
[2017-02-16 23:06] VITALS: BP 148/83
[2017-02-17 00:48] LABS: POINT-OF-CARE METER ID UU14188577
[2017-02-17 04:23] VITALS: BP 132/66
[2017-02-17 06:22] LABS: HEMATOCRIT 44.2 % (38.0-50.0); MCH 28.1 PG (29.0-34.0); MCHC 30.5 G/DL (30.0-36.0); MCV 91.9 FL (86-99); MEAN PLAT.VOLUME 9.9 uM^3 (9.0-12.4); PLATELET COUNT 193 K/uL (156-360); RBC DIS.WIDTH-CV 17.8 % (11.8-14.6); RBC DIS.WIDTH-SD 60.3 % (39-53); RED BLOOD COUNT 4.81 M/uL (4.00-5.50); WHITE BLOOD COUNT 10.6 K/uL (4.1-10.2)
[2017-02-17 06:36] LABS: POINT-OF-CARE METER ID UU14188577
[2017-02-17 06:44] LABS: ANION GAP 8 MEQ/L (2-14); CHLORIDE 98 MEQ/L (99-109); GFR ESTIMATE (CALCULATED) 43 mL/min/; GLUCOSE 184 mg/dL (70-99); POTASSIUM 4.5 MEQ/L (3.7-5.4); SAMPLE HEMOLYSIS CHECK 0; SAMPLE ICTERIC CHECK 0; SAMPLE LIPEMIA CHECK 0; SODIUM 137 MEQ/L (136-147); UREA NITROGEN (BUN) 54 mg/dL (9-23)
[2017-02-17 08:18] VITALS: BP 123/63
[2017-02-17] MEDS ORDERED: SPIRONOLACTONE50 MG PO (08:47)
[2017-02-17] MEDS ORDERED: LOSARTAN POTAS100 MG PO (08:47)
[2017-02-17 11:21] LABS: POINT-OF-CARE METER ID UU14188577
[2017-02-17 11:49] VITALS: BP 146/72
[2017-02-17] MEDS ORDERED: LASIX40 MG PO (13:22)
[2017-02-17 15:51] VITALS: BP 151/70
== END 2017-02-17 15:58 | disposition home or self-care (01) | DRG 291 ==
LOC: EME 11:59 → EDOF 18:56 → 3EAST 18:56 → ENRESERV 18:59 → 3EAST 21:07
PROVIDERS: Emergency Medicine; Hospitalist; Internal Medicine
DX: I13.0 Hypertensive heart and chronic kidney disease with heart failure and stage 1 through stage 4 chronic kidney disease, or unspecified chronic kidney disease (principal); I50.23 Acute on chronic systolic (congestive) heart failure; N18.3 Chronic kidney disease, stage 3 (moderate); E11.22 Type 2 diabetes mellitus with diabetic chronic kidney disease; E11.65 Type 2 diabetes mellitus with hyperglycemia; I42.9 Cardiomyopathy, unspecified; R00.1 Bradycardia, unspecified; I25.10 Atherosclerotic heart disease of native coronary artery without angina pectoris; E78.5 Hyperlipidemia, unspecified; G47.33 Obstructive sleep apnea (adult) (pediatric); J45.909 Unspecified asthma, uncomplicated; E66.01 Morbid (severe) obesity due to excess calories; Z68.42 Body mass index [BMI] 45.0-49.9, adult; Z91.120 Patient's intentional underdosing of medication regimen due to financial hardship; Z91.11 Patient's noncompliance with dietary regimen; Z79.4 Long term (current) use of insulin; Z79.82 Long term (current) use of aspirin; Z86.73 Personal history of transient ischemic attack (TIA), and cerebral infarction without residual deficits; Z87.442 Personal history of urinary calculi; Z80.0 Family history of malignant neoplasm of digestive organs; Z88.0 Allergy status to penicillin
CPT/HCPCS: 71020; 80048; 81003; 82948; 83880; 84484; 85027; 90686; 93005; 93970; 99281; 99285; J1644; J1815; J1940

== ENCOUNTER → 2017-02-24 | Outpatient (CLI) | payer OTHER ==
[~2017-02-24] MED LIST changes: +ALDACTONE50 MG PO; +AZITHROMYCIN250 MG PO; +CODEINE SULFATE15 MG PO; +COREG3.125 M1 PO; +COZAAR100 MG PO; +FUROSEMIDE80 MG PO; +LASIX40 MG PO; +SINGULAIR10 MG PO; +SPIRONOLACTONE50 MG PO; +VENTOLIN HFA18 GM IH
== END | disposition home or self-care (01) ==
LOC: RAD 12:20
DX: I42.9 Cardiomyopathy, unspecified (principal)
CPT/HCPCS: 71020

== ENCOUNTER 2017-02-25 21:09 | Inpatient (IN) | payer OTHER ==
[~2017-02-25] VITALS: Ht 180.3 cm; Wt 156.6 kg
[~2017-02-25 21:09] MED LIST changes: -AZITHROMYCIN250 MG PO; -CODEINE SULFATE15 MG PO; -FUROSEMIDE80 MG PO; -VENTOLIN HFA18 GM IH
[2017-02-25 21:55] LABS: HEMATOCRIT 42.9 % (38.0-50.0); MCH 29.1 PG (29.0-34.0); MCHC 30.8 G/DL (30.0-36.0); MCV 94.7 FL (86-99); MEAN PLAT.VOLUME 10.2 uM^3 (9.0-12.4); PLATELET COUNT 152 K/uL (156-360); RBC DIS.WIDTH-CV 17.2 % (11.8-14.6); RBC DIS.WIDTH-SD 60.8 % (39-53); RED BLOOD COUNT 4.53 M/uL (4.00-5.50); WHITE BLOOD COUNT 8.4 K/uL (4.1-10.2)
[2017-02-25 22:05] LABS: CHLORIDE 104 mEq/L (99-109); POTASSIUM 5.4 mEq/L (3.7-5.4); SODIUM 135 mEq/L (136-147)
[2017-02-25 22:07] LABS: GLUCOSE 308 mg/dL (70-99)
[2017-02-25 22:08] LABS: ANION GAP 8 MEQ/L (2-14)
[2017-02-25 22:11] LABS: GFR ESTIMATE (CALCULATED) 47 mL/min/; UREA NITROGEN (BUN) 48 mg/dL (9-23)
[2017-02-25 22:17] LABS: TROP-I INTERPRETATION NEGATIVE; TROPONIN-I 0.03 ng/mL (0.0-0.30)
[2017-02-26] MEDS ORDERED: COZAAR100 MG PO (00:05)
[2017-02-26] MEDS ORDERED: SPIRONOLACTONE50 MG PO (00:05)
[2017-02-26] MEDS ORDERED: FUROSEMIDE40 MG PO (00:05)
[2017-02-26] MEDS ORDERED: NOVOLOG PE100 UNITS/ SC (00:06)
[2017-02-26] MEDS ORDERED: LEVEMIR FL100 UNIT/1 SC (00:06)
[2017-02-26] MEDS ORDERED: FUROSEMIDE80 MG PO (00:07)
[2017-02-26] MEDS ORDERED: AZITHROMYCIN250 MG PO (00:07)
[2017-02-26 01:54] LABS: ADD MIUA? YES; BILIRUBIN NEGATIVE; BLOOD NEGATIVE; COLOR YELLOW ((YELLOW)); GLUCOSE (STRIP) 150; KETONES NEGATIVE; LEUKOCYTES NEGATIVE; NITRITE NEGATIVE; PROTEIN (STRIP) 100; SPECIFIC GRAVITY 1.017 (1.000-1.030); UROBILINOGEN 0.2 MG/DL (0.2-1.0)
[2017-02-26 02:01] VITALS: BP 142/68
[2017-02-26 02:02] LABS: BACTERIA NONE SEEN /HPF; EPITHELIAL CELLS NONE SEEN /HPF; HYALINE CASTS 0-5 /LPF; MUCUS NONE SEEN /LPF; RED BLOOD CELLS 0-5 /HPF (0-5); UCUL ADDED? NO; WHITE BLOOD CELLS 0-5 /HPF (0-5)
[2017-02-26 02:36] LABS: POINT-OF-CARE METER ID UU14174225; POINT-OF-CARE USER ID 603211116
[2017-02-26 05:55] LABS: HEMATOCRIT 43.1 % (38.0-50.0); MCH 29.8 PG (29.0-34.0); MCHC 31.3 G/DL (30.0-36.0); MCV 95.1 FL (86-99); MEAN PLAT.VOLUME 10.3 uM^3 (9.0-12.4); PLATELET COUNT 155 K/uL (156-360); RBC DIS.WIDTH-CV 17.5 % (11.8-14.6); RBC DIS.WIDTH-SD 62.4 % (39-53); RED BLOOD COUNT 4.53 M/uL (4.00-5.50); WHITE BLOOD COUNT 8.6 K/uL (4.1-10.2)
[2017-02-26 06:18] LABS: TROP-I INTERPRETATION NEGATIVE; TROPONIN-I 0.04 ng/mL (0.0-0.30)
[2017-02-26 06:42] LABS: ANION GAP 9 MEQ/L (2-14); CHLORIDE 103 MEQ/L (99-109); GFR ESTIMATE (CALCULATED) 50 mL/min/; GLUCOSE 249 mg/dL (70-99); POTASSIUM 5.2 MEQ/L (3.7-5.4); SAMPLE HEMOLYSIS CHECK 0; SAMPLE ICTERIC CHECK 0; SAMPLE LIPEMIA CHECK 0; SODIUM 136 MEQ/L (136-147); UREA NITROGEN (BUN) 50 mg/dL (9-23)
[2017-02-26 07:40] LABS: POINT-OF-CARE METER ID UU14174225
[2017-02-26 08:09] VITALS: BP 139/71
[2017-02-26 10:39] LABS: TROP-I INTERPRETATION NEGATIVE; TROPONIN-I 0.03 ng/mL (0.0-0.30)
[2017-02-26 11:32] VITALS: BP 142/80
[2017-02-26 11:45] LABS: POINT-OF-CARE METER ID UU13113717
[2017-02-26 16:22] VITALS: BP 140/65
[2017-02-26 17:39] LABS: POINT-OF-CARE METER ID UU14174225
[2017-02-26 21:32] LABS: POINT-OF-CARE METER ID UU13113717
[2017-02-27 00:24] VITALS: BP 133/71
[2017-02-27 07:00] VITALS: BP 146/79
[2017-02-27 07:22] LABS: POINT-OF-CARE METER ID UU14174225
[2017-02-27 09:21] LABS: ANION GAP 10 MEQ/L (2-14); CHLORIDE 105 MEQ/L (99-109); GFR ESTIMATE (CALCULATED) 54 mL/min/; GLUCOSE 146 mg/dL (70-99); POTASSIUM 4.9 MEQ/L (3.7-5.4); SAMPLE HEMOLYSIS CHECK 0; SAMPLE ICTERIC CHECK 0; SAMPLE LIPEMIA CHECK 0; SODIUM 140 MEQ/L (136-147); UREA NITROGEN (BUN) 52 mg/dL (9-23)
[2017-02-27 11:00] VITALS: BP 139/86
[2017-02-27 13:03] LABS: POINT-OF-CARE METER ID UU14174225
[2017-02-27 15:00] VITALS: BP 145/74
[2017-02-27 17:44] LABS: POINT-OF-CARE METER ID UU13113717
[2017-02-27 20:10] VITALS: BP 160/69
[2017-02-27 20:53] LABS: POINT-OF-CARE METER ID UU14174225
[2017-02-28 05:15] VITALS: BP 143/66
[2017-02-28 07:23] LABS: POINT-OF-CARE METER ID UU14188625
[2017-02-28] MEDS ORDERED: ATORVASTATIN CA40 MG PO (07:24)
[2017-02-28 07:51] VITALS: BP 118/71
[2017-02-28] MEDS ORDERED: VENTOLIN HFA18 GM IH (08:11)
[2017-02-28] MEDS ORDERED: CODEINE SULFATE15 MG PO (08:12)
[2017-02-28 12:10] LABS: POINT-OF-CARE METER ID UU14188625
[2017-02-28 15:48] VITALS: BP 129/78
[2017-02-28 17:07] LABS: POINT-OF-CARE METER ID UU14188625
[2017-02-28 23:22] LABS: POINT-OF-CARE METER ID UU14188625; POINT-OF-CARE USER ID BHSKTD
[2017-03-01 00:22] VITALS: BP 167/74
[2017-03-01 07:47] LABS: POINT-OF-CARE METER ID UU14188625
[2017-03-01 07:58] VITALS: BP 128/76
[2017-03-01 12:08] LABS: POINT-OF-CARE METER ID UU13113717
[2017-03-01 12:16] VITALS: BP 142/65
[2017-03-01 16:05] VITALS: BP 139/63
[2017-03-01 17:01] LABS: POINT-OF-CARE METER ID UU14174225
[2017-03-01 20:54] LABS: POINT-OF-CARE METER ID UU13113717; POINT-OF-CARE USER ID 603211116
[2017-03-01 23:38] VITALS: BP 155/68
[2017-03-02 06:59] VITALS: BP 107/65
[2017-03-02 07:48] LABS: POINT-OF-CARE METER ID UU13113717
[2017-03-02] MEDS ORDERED: SPIRIVA18 MCG IH (09:56)
[2017-03-02] MEDS ORDERED: ROBITUSSIN DM118 ML PO (09:58)
[2017-03-02] MEDS ORDERED: COZAAR25 MG PO (10:42)
== END 2017-03-02 12:11 | disposition home or self-care (01) | DRG 291 ==
LOC: EME 21:09 → 5SOUTH 02-26 00:20 → EDOF 02-26 00:20 → ENRESERV 02-26 00:23 → 5SOUTH 02-26 01:33
PROVIDERS: Hospitalist; Physician Assistant Medical
PROC: 5A09357 Assistance with Respiratory Ventilation, Less than 24 Consecutive Hours, Continuous Positive Airway Pressure (ICD-10-PCS; principal; 2017-02-26)
DX: I13.0 Hypertensive heart and chronic kidney disease with heart failure and stage 1 through stage 4 chronic kidney disease, or unspecified chronic kidney disease (principal); I50.23 Acute on chronic systolic (congestive) heart failure; E10.22 Type 1 diabetes mellitus with diabetic chronic kidney disease; N18.3 Chronic kidney disease, stage 3 (moderate); E10.65 Type 1 diabetes mellitus with hyperglycemia; D69.6 Thrombocytopenia, unspecified; E66.01 Morbid (severe) obesity due to excess calories; E78.5 Hyperlipidemia, unspecified; I42.9 Cardiomyopathy, unspecified; I25.10 Atherosclerotic heart disease of native coronary artery without angina pectoris; G47.33 Obstructive sleep apnea (adult) (pediatric); J45.909 Unspecified asthma, uncomplicated; J20.9 Acute bronchitis, unspecified; Z79.4 Long term (current) use of insulin; Z86.73 Personal history of transient ischemic attack (TIA), and cerebral infarction without residual deficits; Z68.42 Body mass index [BMI] 45.0-49.9, adult; Z79.82 Long term (current) use of aspirin; Z91.11 Patient's noncompliance with dietary regimen; Z91.14 Patient's other noncompliance with medication regimen; Z88.0 Allergy status to penicillin
CPT/HCPCS: 71020; 80048; 81003; 82948; 83880; 84484; 85027; 93005; 94640; 94640 76; 94660; 94799; 99202; 99281; 99285; J1644; J1815; J1940

== ENCOUNTER 2017-03-13 22:25 | Inpatient (IN) | payer OTHER ==
[~2017-03-13] VITALS: Ht 182.9 cm; Wt 158.0 kg
[~2017-03-13 22:25] MED LIST changes: +AZITHROMYCIN250 MG PO; +CODEINE SULFATE15 MG PO; +COZAAR25 MG PO; +FUROSEMIDE80 MG PO; +ROBITUSSIN DM118 ML PO; +SPIRIVA18 MCG IH; +VENTOLIN HFA18 GM IH
[2017-03-13 23:14] LABS: HEMATOCRIT 41.7 % (38.0-50.0); MCH 29.6 PG (29.0-34.0); MCHC 30.9 G/DL (30.0-36.0); MCV 95.6 FL (86-99); MEAN PLAT.VOLUME 9.4 uM^3 (9.0-12.4); PLATELET COUNT 168 K/uL (156-360); RBC DIS.WIDTH-CV 16.1 % (11.8-14.6); RBC DIS.WIDTH-SD 57.1 % (39-53); RED BLOOD COUNT 4.36 M/uL (4.00-5.50); WHITE BLOOD COUNT 10.1 K/uL (4.1-10.2)
[2017-03-13 23:27] LABS: CHLORIDE 109 mEq/L (99-109); POTASSIUM 4.8 mEq/L (3.7-5.4); SODIUM 141 mEq/L (136-147)
[2017-03-13 23:29] LABS: GLUCOSE 221 mg/dL (70-99)
[2017-03-13 23:30] LABS: ANION GAP 8 MEQ/L (2-14)
[2017-03-13 23:33] LABS: GFR ESTIMATE (CALCULATED) 54 mL/min/
[2017-03-13 23:34] LABS: UREA NITROGEN (BUN) 38 mg/dL (9-23)
[2017-03-13 23:39] LABS: TROP-I INTERPRETATION NEGATIVE; TROPONIN-I 0.03 ng/mL (0.0-0.30)
[2017-03-14 05:00] VITALS: BP 170/89
[2017-03-14 05:38] LABS: HEMATOCRIT 42.2 % (38.0-50.0); MCHC 31.8 G/DL (30.0-36.0); MCV 94.6 FL (86-99); MEAN PLAT.VOLUME 9.8 uM^3 (9.0-12.4); PLATELET COUNT 160 K/uL (156-360); RBC DIS.WIDTH-CV 16.1 % (11.8-14.6); RBC DIS.WIDTH-SD 56.7 % (39-53); RED BLOOD COUNT 4.46 M/uL (4.00-5.50); WHITE BLOOD COUNT 9.4 K/uL (4.1-10.2)
[2017-03-14 05:59] LABS: ALKALINE PHOSPHATASE 49 IU/L (3-129); ANION GAP 10 MEQ/L (2-14); CHLORIDE 106 MEQ/L (99-109); GFR ESTIMATE (CALCULATED) 54 mL/min/; GLUCOSE 280 mg/dL (70-99); POTASSIUM 5.2 MEQ/L (3.7-5.4); SAMPLE HEMOLYSIS CHECK 0; SAMPLE ICTERIC CHECK 0; SAMPLE LIPEMIA CHECK 0; SODIUM 137 MEQ/L (136-147); TOTAL BILIRUBIN 0.9 MG/DL (0.0-1.0); UREA NITROGEN (BUN) 39 mg/dL (9-23)
[2017-03-14 07:30] VITALS: BP 154/67
[2017-03-14 07:43] LABS: POINT-OF-CARE METER ID UU14162513
[2017-03-14] MEDS ORDERED: FUROSEMIDE80 MG PO (10:59)
[2017-03-14] MEDS ORDERED: LOSARTAN POTASS25 MG PO (11:02)
[2017-03-14 11:30] VITALS: BP 174/80
[2017-03-14 12:23] LABS: POINT-OF-CARE METER ID UU14162513
[2017-03-14 15:40] VITALS: BP 185/81
[2017-03-14 17:04] LABS: POINT-OF-CARE METER ID UU13113700
[2017-03-14 20:25] VITALS: BP 155/80
[2017-03-14 21:48] LABS: POINT-OF-CARE METER ID UU13113700
[2017-03-14 23:34] VITALS: BP 147/77
[2017-03-15 03:46] VITALS: BP 117/64
[2017-03-15 06:07] LABS: ANION GAP 9 MEQ/L (2-14); CHLORIDE 103 MEQ/L (99-109); GFR ESTIMATE (CALCULATED) 47 mL/min/; GLUCOSE 149 mg/dL (70-99); POTASSIUM 4.7 MEQ/L (3.7-5.4); SAMPLE HEMOLYSIS CHECK 0; SAMPLE ICTERIC CHECK 0; SAMPLE LIPEMIA CHECK 0; SODIUM 139 MEQ/L (136-147); UREA NITROGEN (BUN) 46 mg/dL (9-23)
[2017-03-15 07:43] VITALS: BP 160/77
[2017-03-15 12:21] LABS: POINT-OF-CARE METER ID UU14162513
[2017-03-15 16:50] VITALS: BP 160/81
[2017-03-15 18:11] LABS: POINT-OF-CARE METER ID UU13113700
[2017-03-15 19:46] VITALS: BP 161/74
[2017-03-15 21:19] LABS: POINT-OF-CARE METER ID UU14162513
[2017-03-15 23:15] VITALS: BP 150/66
[2017-03-16 03:40] VITALS: BP 156/72
[2017-03-16 07:15] LABS: ANION GAP 11 MEQ/L (2-14); CHLORIDE 103 MEQ/L (99-109); GFR ESTIMATE (CALCULATED) 50 mL/min/; GLUCOSE 113 mg/dL (70-99); POTASSIUM 4.6 MEQ/L (3.7-5.4); SAMPLE HEMOLYSIS CHECK 0; SAMPLE ICTERIC CHECK 0; SAMPLE LIPEMIA CHECK 0; SODIUM 138 MEQ/L (136-147); UREA NITROGEN (BUN) 49 mg/dL (9-23)
[2017-03-16 07:38] VITALS: BP 159/68
[2017-03-16 13:18] VITALS: BP 160/72
[2017-03-16 16:35] VITALS: BP 149/67
[2017-03-16 19:25] VITALS: BP 125/57
[2017-03-16 21:35] LABS: POINT-OF-CARE METER ID UU13113700
[2017-03-17 00:29] VITALS: BP 171/75
[2017-03-17 01:00] VITALS: BP 121/60
[2017-03-17 04:20] VITALS: BP 136/68
[2017-03-17 06:02] LABS: ANION GAP 7 MEQ/L (2-14); CHLORIDE 104 MEQ/L (99-109); GFR ESTIMATE (CALCULATED) 50 mL/min/; GLUCOSE 140 mg/dL (70-99); POTASSIUM 4.9 MEQ/L (3.7-5.4); SAMPLE HEMOLYSIS CHECK 0; SAMPLE ICTERIC CHECK 0; SAMPLE LIPEMIA CHECK 0; SODIUM 139 MEQ/L (136-147); UREA NITROGEN (BUN) 51 mg/dL (9-23)
[2017-03-17 09:21] VITALS: BP 117/58
[2017-03-17] MEDS ORDERED: LASIX20 MG PO (10:35)
[2017-03-17 12:19] LABS: POINT-OF-CARE METER ID UU13113700
== END 2017-03-17 13:36 | disposition home or self-care (01) | DRG 291 ==
LOC: EME 22:25 → EDOF 03-14 01:55 → ENRESERV 03-14 01:57 → 5WEST 03-14 04:34 → ENRESERV 03-14 14:46 → CANRESERV 03-14 14:46 → 5WEST 03-17 13:36
PROVIDERS: Internal Medicine; Student in an Organized Health Care Education/Training Program
DX: I13.0 Hypertensive heart and chronic kidney disease with heart failure and stage 1 through stage 4 chronic kidney disease, or unspecified chronic kidney disease (principal); I50.23 Acute on chronic systolic (congestive) heart failure; N18.3 Chronic kidney disease, stage 3 (moderate); E11.22 Type 2 diabetes mellitus with diabetic chronic kidney disease; E78.5 Hyperlipidemia, unspecified; I25.10 Atherosclerotic heart disease of native coronary artery without angina pectoris; I42.9 Cardiomyopathy, unspecified; J44.9 Chronic obstructive pulmonary disease, unspecified; G47.33 Obstructive sleep apnea (adult) (pediatric); E66.01 Morbid (severe) obesity due to excess calories; Z68.42 Body mass index [BMI] 45.0-49.9, adult; Z79.4 Long term (current) use of insulin; Z79.82 Long term (current) use of aspirin; Z87.442 Personal history of urinary calculi
CPT/HCPCS: 71010; 71020; 80048; 80053; 82948; 84484; 85027; 93005; 94640; 99202; 99281; 99285; J1644; J1815; J1940; J7512

== ENCOUNTER 2017-04-09 21:39 | Inpatient (IN) | payer OTHER ==
[~2017-04-09] VITALS: Ht 182.9 cm; Wt 152.3 kg
[~2017-04-09 21:39] MED LIST changes: +LASIX20 MG PO; +LOSARTAN POTASS25 MG PO
[2017-04-09 22:50] LABS: BASOPHIL COUNT 0.1 K/uL (0-0.1); EOSINOPHIL (%) 4.7 % (0-5); EOSINOPHIL COUNT 0.5 K/uL (0-0.3); HEMATOCRIT 44.7 % (38.0-50.0); IMMATURE GRANULOCYTE (%) 0.5 % (0.0-0.7); IMMATURE GRANULOCYTE COUNT 0.1 K/uL; INSTRUMENT ABS NEUTROPHIL CT 7.5 K/uL; LYMPHOCYTE COUNT 1.2 K/uL (1.0-2.8); MCH 29.4 PG (29.0-34.0); MCHC 30.9 G/DL (30.0-36.0); MCV 95.3 FL (86-99); MONOCYTE COUNT 1.1 K/uL (0-0.8); NEUTROPHIL (%) 71.8 % (45-76); NEUTROPHIL COUNT 7.5 K/uL (1.8-6.4); PLATELET COUNT 155 K/uL (156-360); RBC DIS.WIDTH-CV 14.3 % (11.8-14.6); RBC DIS.WIDTH-SD 49.4 % (39-53); RED BLOOD COUNT 4.69 M/uL (4.00-5.50); WHITE BLOOD COUNT 10.5 K/uL (4.1-10.2)
[2017-04-09 23:00] LABS: INTER. NORMALIZED RATIO 1.1; PROTHROMBIN TIME 12.7 SEC (10.2-12.9)
[2017-04-09 23:01] LABS: CHLORIDE 103 mEq/L (99-109); POTASSIUM 4.9 mEq/L (3.7-5.4); SODIUM 136 mEq/L (136-147)
[2017-04-09 23:02] LABS: PTT 31.9 SEC (25-37)
[2017-04-09 23:04] LABS: ANION GAP 10 MEQ/L (2-14); GLUCOSE 401 mg/dL (70-99)
[2017-04-09 23:06] LABS: GFR ESTIMATE (CALCULATED) 47 mL/min/
[2017-04-09 23:11] LABS: TROP-I INTERPRETATION NEGATIVE; TROPONIN-I 0.03 ng/mL (0.0-0.30)
[2017-04-10 00:23] LABS: UREA NITROGEN (BUN) 47 mg/dL (9-23)
[2017-04-10] MEDS ORDERED: CARVEDILOL3.125 MG PO (00:34)
[2017-04-10] MEDS ORDERED: MONTELUKAST SOD10 MG PO (00:35)
[2017-04-10] MEDS ORDERED: LASIX40 MG PO (00:36)
[2017-04-10] MEDS ORDERED: SPIRIVA18 MCG IH (00:37)
[2017-04-10] MEDS ORDERED: INCRUSE ELLI62.5 MCG IH (00:38)
[2017-04-10] MEDS ORDERED: LOSARTAN POTAS100 MG PO (00:39)
[2017-04-10] MEDS ORDERED: FUROSEMIDE80 MG PO (00:40)
[2017-04-10] MEDS ORDERED: ATORVASTATIN CA40 MG PO (00:42)
[2017-04-10 01:15] LABS: POINT-OF-CARE METER ID UU13113747
[2017-04-10 04:34] LABS: TROP-I INTERPRETATION NEGATIVE; TROPONIN-I 0.04 ng/mL (0.0-0.30)
[2017-04-10 08:22] LABS: POINT-OF-CARE METER ID UU13113747
[2017-04-10 14:41] LABS: POINT-OF-CARE METER ID UU13113747
[2017-04-10 16:06] VITALS: BP 169/77
[2017-04-10 17:18] LABS: POINT-OF-CARE METER ID UU14314088
[2017-04-10 19:03] VITALS: BP 152/72
[2017-04-10 21:20] LABS: POINT-OF-CARE METER ID UU14314088
[2017-04-10 23:40] VITALS: BP 138/68
[2017-04-11 05:17] VITALS: BP 148/74
[2017-04-11 05:39] LABS: BASOPHIL COUNT 0.1 K/uL (0-0.1); EOSINOPHIL (%) 5.7 % (0-5); EOSINOPHIL COUNT 0.7 K/uL (0-0.3); HEMATOCRIT 43.6 % (38.0-50.0); IMMATURE GRANULOCYTE (%) 0.5 % (0.0-0.7); IMMATURE GRANULOCYTE COUNT 0.1 K/uL; LYMPHOCYTE COUNT 1.3 K/uL (1.0-2.8); MCH 29.3 PG (29.0-34.0); MCV 94.8 FL (86-99); MEAN PLAT.VOLUME 10.5 uM^3 (9.0-12.4); MONOCYTE (%) 11.7 % (3-12); MONOCYTE COUNT 1.3 K/uL (0-0.8); NEUTROPHIL (%) 69.6 % (45-76); PLATELET COUNT 155 K/uL (156-360); RBC DIS.WIDTH-CV 14.5 % (11.8-14.6); RBC DIS.WIDTH-SD 50.1 % (39-53); WHITE BLOOD COUNT 11.4 K/uL (4.1-10.2)
[2017-04-11 07:06] LABS: ANION GAP ND MEQ/L (2-14); CHLORIDE 103 MEQ/L (99-109); GLUCOSE 214 mg/dL (70-99); POTASSIUM 5.2 MEQ/L (3.7-5.4); SAMPLE HEMOLYSIS CHECK 0; SAMPLE ICTERIC CHECK 0; SAMPLE LIPEMIA CHECK 0; SODIUM 138 MEQ/L (136-147); UREA NITROGEN (BUN) 53 mg/dL (9-23)
[2017-04-11 07:25] VITALS: BP 122/68
[2017-04-11 08:00] LABS: GFR ESTIMATE (CALCULATED) 47 mL/min/
[2017-04-11 08:23] LABS: POINT-OF-CARE METER ID UU14174216
[2017-04-11 11:46] VITALS: BP 122/62
[2017-04-11 12:12] LABS: POINT-OF-CARE METER ID UU14174216
[2017-04-11 16:31] LABS: POINT-OF-CARE METER ID UU13113698
[2017-04-11 16:47] VITALS: BP 111/56
[2017-04-11 20:51] VITALS: BP 115/81
[2017-04-11 21:20] LABS: POINT-OF-CARE METER ID UU14314088
[2017-04-11 23:35] VITALS: BP 167/72
[2017-04-12 05:38] LABS: BASOPHIL COUNT 0.1 K/uL (0-0.1); EOSINOPHIL (%) 6.4 % (0-5); EOSINOPHIL COUNT 0.8 K/uL (0-0.3); HEMATOCRIT 44.4 % (38.0-50.0); IMMATURE GRANULOCYTE (%) 0.6 % (0.0-0.7); IMMATURE GRANULOCYTE COUNT 0.1 K/uL; INSTRUMENT ABS NEUTROPHIL CT 8.1 K/uL; LYMPHOCYTE COUNT 1.3 K/uL (1.0-2.8); MCH 29.5 PG (29.0-34.0); MCHC 31.5 G/DL (30.0-36.0); MCV 93.7 FL (86-99); MEAN PLAT.VOLUME 9.9 uM^3 (9.0-12.4); MONOCYTE (%) 10.4 % (3-12); MONOCYTE COUNT 1.2 K/uL (0-0.8); NEUTROPHIL COUNT 8.1 K/uL (1.8-6.4); PLATELET COUNT 191 K/uL (156-360); RBC DIS.WIDTH-CV 14.3 % (11.8-14.6); RBC DIS.WIDTH-SD 48.4 % (39-53); RED BLOOD COUNT 4.74 M/uL (4.00-5.50); WHITE BLOOD COUNT 11.6 K/uL (4.1-10.2)
[2017-04-12 06:07] LABS: ANION GAP 9 MEQ/L (2-14); CHLORIDE 100 MEQ/L (99-109); GFR ESTIMATE (CALCULATED) 43 mL/min/; GLUCOSE 189 mg/dL (70-99); POTASSIUM 5.1 MEQ/L (3.7-5.4); SAMPLE HEMOLYSIS CHECK 0; SAMPLE ICTERIC CHECK 0; SAMPLE LIPEMIA CHECK 0; SODIUM 139 MEQ/L (136-147); UREA NITROGEN (BUN) 52 mg/dL (9-23)
[2017-04-12 07:17] VITALS: BP 172/72
[2017-04-12 07:55] LABS: POINT-OF-CARE METER ID UU13113698
[2017-04-12 11:22] LABS: POINT-OF-CARE METER ID UU13113781
[2017-04-12 12:10] VITALS: BP 139/64
[2017-04-12 15:25] VITALS: BP 116/58
[2017-04-12 16:41] LABS: POINT-OF-CARE METER ID UU14314088
[2017-04-12 19:15] VITALS: BP 125/68
[2017-04-12 22:06] LABS: POINT-OF-CARE METER ID UU14314088
[2017-04-12 22:21] VITALS: BP 163/75
[2017-04-13] VITALS (8 sets, daily range): BP systolic 119–156; BP diastolic 56–70
[2017-04-13 07:57] LABS: POINT-OF-CARE METER ID UU14174216
[2017-04-13 09:41] LABS: ANION GAP 9 MEQ/L (2-14); CHLORIDE 99 MEQ/L (99-109); GFR ESTIMATE (CALCULATED) 43 mL/min/; GLUCOSE 211 mg/dL (70-99); POTASSIUM 4.5 MEQ/L (3.7-5.4); SAMPLE HEMOLYSIS CHECK 0; SAMPLE ICTERIC CHECK 0; SAMPLE LIPEMIA CHECK 0; SODIUM 136 MEQ/L (136-147); UREA NITROGEN (BUN) 54 mg/dL (9-23)
[2017-04-13 11:48] LABS: POINT-OF-CARE METER ID UU14314088
[2017-04-13 12:26] LABS: Estimated Average Glucose 280 mg/dL (70-123); HEMOGLOBIN A1c (GLYCOHEMOGLOB) 11.4 % HGB (Below 5.7)
[2017-04-13 14:25] LABS: ADD MIUA? NO; BILIRUBIN NEGATIVE; BLOOD NEGATIVE; COLOR STRAW ((YELLOW)); GLUCOSE (STRIP) NEGATIVE; KETONES NEGATIVE; LEUKOCYTES NEGATIVE; NITRITE NEGATIVE; PROTEIN (STRIP) NEGATIVE; SPECIFIC GRAVITY 1.006 (1.000-1.030); UCUL ADDED? NO; UROBILINOGEN 0.2 MG/DL (0.2-1.0)
[2017-04-13 16:17] LABS: POINT-OF-CARE METER ID UU13113698
[2017-04-13 22:18] LABS: POINT-OF-CARE METER ID UU14174225
[2017-04-14 07:06] VITALS: BP 135/67
[2017-04-14 07:24] LABS: POINT-OF-CARE METER ID UU14174225
[2017-04-14 10:20] LABS: ALKALINE PHOSPHATASE 60 IU/L (3-129); ANION GAP 10 MEQ/L (2-14); CHLORIDE 100 MEQ/L (99-109); GFR ESTIMATE (CALCULATED) 38 mL/min/; GLUCOSE 246 mg/dL (70-99); POTASSIUM 5.6 MEQ/L (3.7-5.4); SAMPLE HEMOLYSIS CHECK 1; SAMPLE ICTERIC CHECK 0; SAMPLE LIPEMIA CHECK 0; SODIUM 135 MEQ/L (136-147); TOTAL BILIRUBIN 1.5 MG/DL (0.0-1.0); UREA NITROGEN (BUN) 56 mg/dL (9-23)
[2017-04-14 10:46] LABS: POINT-OF-CARE METER ID UU13113717
[2017-04-14 10:51] LABS: BASOPHIL COUNT 0.1 K/uL (0-0.1); EOSINOPHIL (%) 4.7 % (0-5); EOSINOPHIL COUNT 0.5 K/uL (0-0.3); IMMATURE GRANULOCYTE (%) 0.6 % (0.0-0.7); IMMATURE GRANULOCYTE COUNT 0.1 K/uL; LYMPHOCYTE COUNT 0.8 K/uL (1.0-2.8); MCH 29.3 PG (29.0-34.0); MCV 91.7 FL (86-99); MEAN PLAT.VOLUME 9.3 uM^3 (9.0-12.4); MONOCYTE (%) 12.4 % (3-12); MONOCYTE COUNT 1.3 K/uL (0-0.8); NEUTROPHIL (%) 74.1 % (45-76); PLATELET COUNT 180 K/uL (156-360); RBC DIS.WIDTH-CV 14.3 % (11.8-14.6); RBC DIS.WIDTH-SD 48.2 % (39-53); RED BLOOD COUNT 4.47 M/uL (4.00-5.50); WHITE BLOOD COUNT 10.8 K/uL (4.1-10.2)
[2017-04-14 15:08] VITALS: BP 149/66
[2017-04-14 15:34] LABS: POINT-OF-CARE METER ID UU14174225
[2017-04-14 20:09] VITALS: BP 181/67
[2017-04-14 21:53] LABS: POINT-OF-CARE METER ID UU13113717
[2017-04-15 00:56] VITALS: BP 130/80
[2017-04-15 03:53] VITALS: BP 123/92; BP 123/922
[2017-04-15 07:22] LABS: BASOPHIL COUNT 0.1 K/uL (0-0.1); EOSINOPHIL (%) 5.6 % (0-5); EOSINOPHIL COUNT 0.6 K/uL (0-0.3); HEMATOCRIT 41.8 % (38.0-50.0); IMMATURE GRANULOCYTE (%) 0.5 % (0.0-0.7); IMMATURE GRANULOCYTE COUNT 0.1 K/uL; INSTRUMENT ABS NEUTROPHIL CT 7.2 K/uL; LYMPHOCYTE COUNT 1.4 K/uL (1.0-2.8); MCH 29.4 PG (29.0-34.0); MCHC 32.1 G/DL (30.0-36.0); MCV 91.7 FL (86-99); MEAN PLAT.VOLUME 9.4 uM^3 (9.0-12.4); MONOCYTE (%) 14.4 % (3-12); MONOCYTE COUNT 1.6 K/uL (0-0.8); NEUTROPHIL (%) 65.7 % (45-76); NEUTROPHIL COUNT 7.2 K/uL (1.8-6.4); PLATELET COUNT 194 K/uL (156-360); RBC DIS.WIDTH-CV 14.2 % (11.8-14.6); RBC DIS.WIDTH-SD 48.1 % (39-53); RED BLOOD COUNT 4.56 M/uL (4.00-5.50)
[2017-04-15 07:30] VITALS: BP 132/76
[2017-04-15 07:47] LABS: ALKALINE PHOSPHATASE 60 IU/L (3-129); ANION GAP 8 MEQ/L (2-14); CHLORIDE 100 MEQ/L (99-109); GFR ESTIMATE (CALCULATED) 32 mL/min/; GLUCOSE 156 mg/dL (70-99); POTASSIUM 4.8 MEQ/L (3.7-5.4); SAMPLE HEMOLYSIS CHECK 0; SAMPLE ICTERIC CHECK 0; SAMPLE LIPEMIA CHECK 0; SODIUM 138 MEQ/L (136-147); TOTAL BILIRUBIN 1.4 MG/DL (0.0-1.0); UREA NITROGEN (BUN) 67 mg/dL (9-23)
[2017-04-15 09:02] LABS: POINT-OF-CARE METER ID UU13113717
[2017-04-15 11:15] VITALS: BP 142/76
[2017-04-15 11:55] LABS: POINT-OF-CARE METER ID UU13113717
[2017-04-15] MEDS ORDERED: FUROSEMIDE80 MG PO (12:03)
[2017-04-15] MEDS ORDERED: ASPIRIN81 M2 PO (12:03)
[2017-04-15] MEDS ORDERED: APRESOLINE25 MG PO (12:03)
[2017-04-15] MEDS ORDERED: ISOSORBIDE DINI20 MG PO (12:03)
== END 2017-04-15 14:19 | disposition home or self-care (01) | DRG 291 ==
LOC: EME 21:39 → EDOF 04-10 03:20 → 4EAST 04-10 03:20 → ENRESERV 04-10 03:21 → 4EAST 04-10 15:45 → ENRESERV 04-13 15:29 → 5SOUTH 04-13 16:42
PROVIDERS: Emergency Medicine; Hospitalist; Internal Medicine Cardiovascular Disease; Student in an Organized Health Care Education/Training Program
DX: I13.0 Hypertensive heart and chronic kidney disease with heart failure and stage 1 through stage 4 chronic kidney disease, or unspecified chronic kidney disease (principal); I50.23 Acute on chronic systolic (congestive) heart failure; E11.22 Type 2 diabetes mellitus with diabetic chronic kidney disease; N18.3 Chronic kidney disease, stage 3 (moderate); E11.65 Type 2 diabetes mellitus with hyperglycemia; E78.5 Hyperlipidemia, unspecified; E66.01 Morbid (severe) obesity due to excess calories; E87.5 Hyperkalemia; G47.33 Obstructive sleep apnea (adult) (pediatric); I25.10 Atherosclerotic heart disease of native coronary artery without angina pectoris; I42.0 Dilated cardiomyopathy; J45.909 Unspecified asthma, uncomplicated; K21.9 Gastro-esophageal reflux disease without esophagitis; F32.9 Major depressive disorder, single episode, unspecified; G89.29 Other chronic pain; R00.1 Bradycardia, unspecified; R74.8 Abnormal levels of other serum enzymes; Z91.11 Patient's noncompliance with dietary regimen; Z68.42 Body mass index [BMI] 45.0-49.9, adult; Z79.4 Long term (current) use of insulin; Z91.19 Patient's noncompliance with other medical treatment and regimen; Z88.0 Allergy status to penicillin
CPT/HCPCS: 71020; 80048; 80053; 81003; 82948; 83036; 83880; 84484; 85025; 85610; 85730; 93005; 94640; 94640 76; 99281; 99285; J1815; J1940

== ENCOUNTER 2017-05-30 16:20 | Emergency (ER) | payer OTHER ==
[~2017-05-30] VITALS: Ht 182.9 cm; Wt 162.1 kg
[~2017-05-30 16:20] MED LIST changes: +APRESOLINE25 MG PO; +ASPIRIN81 M2 PO; +CARVEDILOL3.125 MG PO; +INCRUSE ELLI62.5 MCG IH; +ISOSORBIDE DINI20 MG PO; +MONTELUKAST SOD10 MG PO
[2017-05-30 17:42] LABS: HEMATOCRIT 44.3 % (38.0-50.0); HEMOGLOBIN 13.8 G/DL (12.5-16.6); MCH 29.2 PG (29.0-34.0); MCHC 31.2 G/DL (30.0-36.0); MCV 93.9 FL (86-99); PLATELET COUNT 169 K/uL (156-360); RBC DIS.WIDTH-CV 14.1 % (11.8-14.6); RBC DIS.WIDTH-SD 48.3 % (39-53); RED BLOOD COUNT 4.72 M/uL (4.00-5.50); WHITE BLOOD COUNT 8.8 K/uL (4.1-10.2)
[2017-05-30 17:51] LABS: CHLORIDE 101 mEq/L (99-109); MAGNESIUM 2.4 mg/dL (1.3-2.7); POTASSIUM 5.3 mEq/L (3.7-5.4); SODIUM 134 mEq/L (136-147)
[2017-05-30 17:54] LABS: GLUCOSE 492 mg/dL (70-99)
[2017-05-30 17:56] LABS: CREATININE 1.7 mg/dL (0.6-1.3); GFR ESTIMATE (CALCULATED) 43 mL/min/ (58.99-99999)
[2017-05-30 17:57] LABS: UREA NITROGEN (BUN) 52 mg/dL (9-23)
[2017-05-30 18:04] LABS: TROP-I INTERPRETATION NEGATIVE; TROPONIN-I 0.03 ng/mL (0.0-0.30)
[2017-05-30] MEDS ORDERED: ADULT ASPIRIN R81 MG PO (22:01)
[2017-05-30] MEDS ORDERED: APRESOLINE25 MG PO (22:01)
[2017-05-30 23:49] VITALS: BP 114/60
== END 2017-05-30 23:49 | disposition home or self-care (01) ==
LOC: EME 16:20
PROVIDERS: Emergency Medicine
DX: I50.9 Heart failure, unspecified (principal); E11.65 Type 2 diabetes mellitus with hyperglycemia; Z79.4 Long term (current) use of insulin; J44.9 Chronic obstructive pulmonary disease, unspecified; E66.01 Morbid (severe) obesity due to excess calories; Z68.42 Body mass index [BMI] 45.0-49.9, adult; Z88.0 Allergy status to penicillin
CPT/HCPCS: 71046; 80048; 82948; 83735; 83880; 84484; 85027; 93005; 99281; 99285; J1940

== ENCOUNTER 2017-06-02 16:28 | Emergency (ER) | payer OTHER ==
[~2017-06-02] VITALS: Ht 182.9 cm; Wt 163.0 kg
[~2017-06-02 16:28] MED LIST changes: +ADULT ASPIRIN R81 MG PO
[2017-06-02 17:16] LABS: HEMATOCRIT 43.8 % (38.0-50.0); HEMOGLOBIN 13.7 G/DL (12.5-16.6); MCH 29.6 PG (29.0-34.0); MCHC 31.3 G/DL (30.0-36.0); MCV 94.6 FL (86-99); PLATELET COUNT 153 K/uL (156-360); RBC DIS.WIDTH-CV 14.2 % (11.8-14.6); RBC DIS.WIDTH-SD 49.5 % (39-53); RED BLOOD COUNT 4.63 M/uL (4.00-5.50)
[2017-06-02 17:24] LABS: CHLORIDE 101 mEq/L (99-109); POTASSIUM 5.6 mEq/L (3.7-5.4); SODIUM 134 mEq/L (136-147)
[2017-06-02 17:26] LABS: GLUCOSE 381 mg/dL (70-99)
[2017-06-02 17:29] LABS: CREATININE 1.8 mg/dL (0.6-1.3); GFR ESTIMATE (CALCULATED) 41 mL/min/ (58.99-99999)
[2017-06-02 17:30] LABS: UREA NITROGEN (BUN) 48 mg/dL (9-23)
[2017-06-02 17:37] LABS: TROP-I INTERPRETATION NEGATIVE; TROPONIN-I 0.03 ng/mL (0.0-0.30)
[2017-06-02 20:36] VITALS: BP 118/62
== END 2017-06-02 20:40 | disposition left against medical advice (07) ==
LOC: EME 16:28
DX: E87.5 Hyperkalemia (principal); R60.0 Localized edema; R06.02 Shortness of breath; R05 Cough; J44.9 Chronic obstructive pulmonary disease, unspecified; I10 Essential (primary) hypertension; E78.5 Hyperlipidemia, unspecified; E11.9 Type 2 diabetes mellitus without complications; Z79.4 Long term (current) use of insulin; Z79.82 Long term (current) use of aspirin; E66.01 Morbid (severe) obesity due to excess calories; Z68.42 Body mass index [BMI] 45.0-49.9, adult; Z53.20 Procedure and treatment not carried out because of patient's decision for unspecified reasons
CPT/HCPCS: 71045; 80048; 83880; 84484; 85027; 93005

== ENCOUNTER 2017-06-08 18:53 | Inpatient (IN) | payer OTHER ==
[~2017-06-08] VITALS: Ht 182.9 cm; Wt 150.0 kg
[2017-06-08 20:56] LABS: HEMATOCRIT 42.9 % (38.0-50.0); HEMOGLOBIN 13.5 G/DL (12.5-16.6); MCH 29.4 PG (29.0-34.0); MCHC 31.5 G/DL (30.0-36.0); MCV 93.5 FL (86-99); PLATELET COUNT 148 K/uL (156-360); RBC DIS.WIDTH-CV 14.4 % (11.8-14.6); RBC DIS.WIDTH-SD 49.1 % (39-53); RED BLOOD COUNT 4.59 M/uL (4.00-5.50)
[2017-06-08 21:07] LABS: ALBUMIN 3.5 g/dL (3.2-4.8); CHLORIDE 99 mEq/L (99-109); SODIUM 135 mEq/L (136-147)
[2017-06-08 21:09] LABS: TOTAL PROTEIN 6.1 g/dL (6.4-8.3)
[2017-06-08 21:13] LABS: ALKALINE PHOSPHATASE 71 IU/L (3-129); CREATININE 1.8 mg/dL (0.6-1.3); GFR ESTIMATE (CALCULATED) 41 mL/min/ (58.99-99999)
[2017-06-08 21:14] LABS: UREA NITROGEN (BUN) 53 mg/dL (9-23)
[2017-06-08 21:15] LABS: AST (GOT) 15 IU/L (2-34)
[2017-06-08 21:16] LABS: ALT (GPT) 14 IU/L (3-49)
[2017-06-08 21:21] LABS: TROP-I INTERPRETATION NEGATIVE; TROPONIN-I 0.03 ng/mL (0.0-0.30)
[2017-06-08 21:25] LABS: GLUCOSE 447 mg/dL (70-99)
[2017-06-08] MEDS ORDERED: METOLAZONE2.5 MG PO (22:27)
[2017-06-08] MEDS ORDERED: TRESIBA FL200 UNIT/1 SC (22:28)
[2017-06-08] MEDS ORDERED: ISOSORBIDE DINI10 MG PO (22:30)
[2017-06-08] MEDS ORDERED: LOSARTAN POTAS100 MG PO (22:45)
[2017-06-09 00:51] VITALS: BP 141/62
[2017-06-09 03:22] LABS: HEMATOCRIT 42.9 % (38.0-50.0); HEMOGLOBIN 13.5 G/DL (12.5-16.6); MCHC 31.5 G/DL (30.0-36.0); MCV 92.3 FL (86-99); RBC DIS.WIDTH-CV 14.4 % (11.8-14.6); RBC DIS.WIDTH-SD 48.3 % (39-53); RED BLOOD COUNT 4.65 M/uL (4.00-5.50); WHITE BLOOD COUNT 10.2 K/uL (4.1-10.2)
[2017-06-09 03:30] LABS: TROP-I INTERPRETATION NEGATIVE; TROPONIN-I 0.03 ng/mL (0.0-0.30)
[2017-06-09 03:40] LABS: ALBUMIN 3.5 g/dL (3.2-4.8)
[2017-06-09 03:41] LABS: CHLORIDE 99 mEq/L (99-109); POTASSIUM 4.8 mEq/L (3.7-5.4); SODIUM 137 mEq/L (136-147)
[2017-06-09 03:43] LABS: GLUCOSE 353 mg/dL (70-99)
[2017-06-09 03:45] LABS: TOTAL BILIRUBIN 1.2 mg/dL (0.0-1.0)
[2017-06-09 03:46] LABS: ALKALINE PHOSPHATASE 69 IU/L (3-129)
[2017-06-09 03:47] LABS: CREATININE 1.7 mg/dL (0.6-1.3); GFR ESTIMATE (CALCULATED) 43 mL/min/ (58.99-99999)
[2017-06-09 03:48] LABS: AST (GOT) 15 IU/L (2-34); UREA NITROGEN (BUN) 52 mg/dL (9-23)
[2017-06-09 03:50] LABS: ALT (GPT) 13 IU/L (3-49)
[2017-06-09 04:06] VITALS: BP 156/70
[2017-06-09 05:01] LABS: IMM.PLATELET FRACTION 14.6 (1-7); PLATELET CLUMPS PRESENT - PLATELET COUNTS APPEARS DECREASED; PLATELET COUNT UNABLE TO REPORT K/uL (156-360)
[2017-06-09 07:04] VITALS: BP 144/70
[2017-06-09 09:22] LABS: TROP-I INTERPRETATION NEGATIVE; TROPONIN-I 0.03 ng/mL (0.0-0.30)
[2017-06-09 11:09] VITALS: BP 133/74
[2017-06-09 11:22] LABS: HEMOGLOBIN A1c (GLYCOHEMOGLOB) 15.3 % (Below 5.7)
[2017-06-09 15:16] VITALS: BP 129/67
[2017-06-09 19:33] VITALS: BP 182/68
[2017-06-10 00:22] VITALS: BP 166/88
[2017-06-10 04:15] VITALS: BP 168/84
[2017-06-10 07:05] VITALS: BP 134/78
[2017-06-10 07:14] LABS: CHLORIDE 97 MEQ/L (99-109); CREATININE 1.7 MG/DL (0.6-1.3); GFR ESTIMATE (CALCULATED) 43 mL/min/ (58.99-99999); POTASSIUM 4.4 MEQ/L (3.7-5.4); SODIUM 139 MEQ/L (136-147); UREA NITROGEN (BUN) 54 mg/dL (9-23)
[2017-06-10 07:16] LABS: GLUCOSE 139 mg/dL (70-99)
[2017-06-10 11:11] VITALS: BP 135/65
[2017-06-11 07:11] LABS: CHLORIDE 98 MEQ/L (99-109); CREATININE 1.8 MG/DL (0.6-1.3); GFR ESTIMATE (CALCULATED) 41 mL/min/ (58.99-99999); GLUCOSE 137 mg/dL (70-99); POTASSIUM 4.4 MEQ/L (3.7-5.4); SODIUM 139 MEQ/L (136-147); UREA NITROGEN (BUN) 57 mg/dL (9-23)
[2017-06-11 08:00] VITALS: BP 122/66
[2017-06-12 00:23] VITALS: BP 136/80
[2017-06-12 10:25] LABS: CHLORIDE 98 MEQ/L (99-109); CREATININE 1.6 MG/DL (0.6-1.3); GFR ESTIMATE (CALCULATED) 47 mL/min/ (58.99-99999); GLUCOSE 136 mg/dL (70-99); POTASSIUM 4.4 MEQ/L (3.7-5.4); SODIUM 141 MEQ/L (136-147); UREA NITROGEN (BUN) 59 mg/dL (9-23)
[2017-06-12 15:21] VITALS: BP 160/80
[2017-06-12 21:27] VITALS: BP 148/70
[2017-06-13 00:08] VITALS: BP 120/64
[2017-06-13 08:06] VITALS: BP 140/78
[2017-06-13 08:50] LABS: CHLORIDE 97 MEQ/L (99-109); CREATININE 1.8 MG/DL (0.6-1.3); GFR ESTIMATE (CALCULATED) 41 mL/min/ (58.99-99999); GLUCOSE 198 mg/dL (70-99); POTASSIUM 4.2 MEQ/L (3.7-5.4); SODIUM 137 MEQ/L (136-147); UREA NITROGEN (BUN) 66 mg/dL (9-23)
[2017-06-13] MEDS ORDERED: HYDRALAZINE HCL50 MG PO (09:39)
== END 2017-06-13 13:17 | disposition home or self-care (01) | DRG 291 ==
LOC: EME 18:53 → EDOF 23:11 → 5SOUTH 23:11 → ENRESERV 23:19 → 5SOUTH 06-09 00:22
PROVIDERS: Emergency Medicine; Internal Medicine; Internal Medicine Cardiovascular Disease; Physician Assistant
DX: I13.0 Hypertensive heart and chronic kidney disease with heart failure and stage 1 through stage 4 chronic kidney disease, or unspecified chronic kidney disease (principal); I50.23 Acute on chronic systolic (congestive) heart failure; N18.3 Chronic kidney disease, stage 3 (moderate); E11.22 Type 2 diabetes mellitus with diabetic chronic kidney disease; E11.65 Type 2 diabetes mellitus with hyperglycemia; E66.01 Morbid (severe) obesity due to excess calories; Z68.41 Body mass index [BMI] 40.0-44.9, adult; I27.20 Pulmonary hypertension, unspecified; I42.0 Dilated cardiomyopathy; J43.9 Emphysema, unspecified; G47.33 Obstructive sleep apnea (adult) (pediatric); Z91.11 Patient's noncompliance with dietary regimen; Z91.14 Patient's other noncompliance with medication regimen; Z91.19 Patient's noncompliance with other medical treatment and regimen; I25.10 Atherosclerotic heart disease of native coronary artery without angina pectoris; R14.0 Abdominal distension (gaseous); E78.5 Hyperlipidemia, unspecified; I49.3 Ventricular premature depolarization; Z71.3 Dietary counseling and surveillance; Z60.2 Problems related to living alone; Z56.0 Unemployment, unspecified; Z79.4 Long term (current) use of insulin; Z80.1 Family history of malignant neoplasm of trachea, bronchus and lung
CPT/HCPCS: 71045; 80048; 80053; 82948; 83036; 83880; 84484; 85027; 93005; 94640; 94640 76; 99281; 99284; J1644; J1815; J1940

== ENCOUNTER 2017-10-04 12:02 | Inpatient (IN) | payer OTHER ==
[~2017-10-04] VITALS: Ht 182.9 cm; Wt 168.6 kg
[~2017-10-04 12:02] MED LIST changes: +HYDRALAZINE HCL50 MG PO; +ISOSORBIDE DINI10 MG PO; +METOLAZONE2.5 MG PO; +TRESIBA FL200 UNIT/1 SC
[2017-10-04 12:46] LABS: HEMATOCRIT 41.6 % (38.0-50.0); HEMOGLOBIN 13.3 G/DL (12.5-16.6); MCH 30.1 PG (29.0-34.0); MCV 94.1 FL (86-99); PLATELET COUNT 160 K/uL (156-360); RBC DIS.WIDTH-CV 14.6 % (11.8-14.6); RBC DIS.WIDTH-SD 49.7 % (39-53); RED BLOOD COUNT 4.42 M/uL (4.00-5.50); WHITE BLOOD COUNT 10.7 K/uL (4.1-10.2)
[2017-10-04 12:54] LABS: INTER. NORMALIZED RATIO 1.2
[2017-10-04 12:56] LABS: ALBUMIN 3.1 g/dL (3.2-4.8)
[2017-10-04 12:57] LABS: CHLORIDE 103 mEq/L (99-109); PTT 30.4 SEC (25-37); SODIUM 140 mEq/L (136-147)
[2017-10-04 12:59] LABS: GLUCOSE 347 mg/dL (70-99); TOTAL PROTEIN 5.6 g/dL (6.4-8.3)
[2017-10-04 13:01] LABS: TOTAL BILIRUBIN 1.7 mg/dL (0.0-1.0)
[2017-10-04 13:02] LABS: ALKALINE PHOSPHATASE 68 IU/L (3-129)
[2017-10-04 13:03] LABS: CREATININE 1.8 mg/dL (0.6-1.3); GFR ESTIMATE (CALCULATED) 41 mL/min/ (58.99-99999)
[2017-10-04 13:04] LABS: AST (GOT) 14 IU/L (2-34); UREA NITROGEN (BUN) 31 mg/dL (9-23)
[2017-10-04 13:06] LABS: ALT (GPT) 9 IU/L (3-49)
[2017-10-04 13:07] LABS: TROP-I INTERPRETATION NEGATIVE; TROPONIN-I 0.05 ng/mL (0.0-0.30)
[2017-10-04] MEDS ORDERED: CLARITIN-D 121 EACH PO (14:39)
[2017-10-04] MEDS ORDERED: TYLENOL EXTRA500 MG PO (14:40)
[2017-10-04] MEDS ORDERED: NEOSPORIN + P28.3 GM TP (14:40)
[2017-10-04 16:27] VITALS: BP 123/80
[2017-10-04 19:22] VITALS: BP 121/81
[2017-10-04 19:40] LABS: TROP-I INTERPRETATION NEGATIVE; TROPONIN-I 0.06 ng/mL (0.0-0.30)
[2017-10-04 23:42] VITALS: BP 134/92
[2017-10-05 01:07] LABS: TROP-I INTERPRETATION NEGATIVE; TROPONIN-I 0.06 ng/mL (0.0-0.30)
[2017-10-05 08:09] LABS: HEMATOCRIT 43.3 % (38.0-50.0); HEMOGLOBIN 13.1 G/DL (12.5-16.6); MCH 28.7 PG (29.0-34.0); MCHC 30.3 G/DL (30.0-36.0); MCV 94.7 FL (86-99); PLATELET COUNT 166 K/uL (156-360); RBC DIS.WIDTH-CV 14.6 % (11.8-14.6); RBC DIS.WIDTH-SD 50.7 % (39-53); RED BLOOD COUNT 4.57 M/uL (4.00-5.50); WHITE BLOOD COUNT 11.1 K/uL (4.1-10.2)
[2017-10-05 08:10] VITALS: BP 171/76
[2017-10-05 08:34] LABS: CHLORIDE 104 MEQ/L (99-109); CREATININE 1.6 MG/DL (0.6-1.3); GFR ESTIMATE (CALCULATED) 47 mL/min/ (58.99-99999); POTASSIUM 4.2 MEQ/L (3.7-5.4); SODIUM 144 MEQ/L (136-147); UREA NITROGEN (BUN) 30 mg/dL (9-23)
[2017-10-05 08:39] LABS: GLUCOSE 88 mg/dL (70-99)
[2017-10-05 10:19] LABS: HEMOGLOBIN A1c (GLYCOHEMOGLOB) 10.7 % (Below 5.7)
[2017-10-05 10:28] LABS: APPEARANCE CLEAR ((CLEAR)); BILIRUBIN NEGATIVE; BLOOD NEGATIVE; COLOR YELLOW ((YELLOW)); GLUCOSE (STRIP) NEGATIVE; KETONES NEGATIVE; LEUKOCYTES NEGATIVE; NITRITE NEGATIVE; PROTEIN (STRIP) 30; SPECIFIC GRAVITY 1.009 (1.000-1.030); UCUL ADDED? NO; UROBILINOGEN 0.2 MG/DL (0.2-1.0)
[2017-10-05 11:51] VITALS: BP 129/76
[2017-10-05 16:22] VITALS: BP 159/74
[2017-10-05 19:47] VITALS: BP 173/79
[2017-10-06 00:13] VITALS: BP 173/80
[2017-10-06 03:59] VITALS: BP 130/69
[2017-10-06 08:28] VITALS: BP 157/71
[2017-10-06 10:42] LABS: CHLORIDE 102 MEQ/L (99-109); POTASSIUM 4.3 MEQ/L (3.7-5.4); SODIUM 144 MEQ/L (136-147)
[2017-10-06 11:20] LABS: CREATININE 1.8 MG/DL (0.6-1.3); GFR ESTIMATE (CALCULATED) 41 mL/min/ (58.99-99999); MAGNESIUM 2.1 mg/dl (1.3-2.7); UREA NITROGEN (BUN) 35 mg/dL (9-23)
[2017-10-06 11:24] LABS: GLUCOSE 162 mg/dL (70-99)
[2017-10-06 12:39] VITALS: BP 143/74
[2017-10-06 16:08] VITALS: BP 136/80
[2017-10-06 19:32] VITALS: BP 116/66
[2017-10-07 00:11] VITALS: BP 141/70
[2017-10-07 08:18] VITALS: BP 130/75
[2017-10-07] MEDS ORDERED: ATORVASTATIN CA40 MG PO (09:51)
[2017-10-07] MEDS ORDERED: ISOSORBIDE DINI30 MG PO (09:53)
[2017-10-07] MEDS ORDERED: METOLAZONE2.5 MG PO (09:55)
== END 2017-10-07 15:13 | disposition home or self-care (01) | DRG 291 ==
LOC: EME 12:02 → EDOF 13:53 → ENRESERV 13:53 → 5SOUTH 13:53 → ENRESERV 14:08 → 5SOUTH 15:30
PROVIDERS: Emergency Medicine Emergency Medical Services; Hospitalist; Physician Assistant
DX: I13.0 Hypertensive heart and chronic kidney disease with heart failure and stage 1 through stage 4 chronic kidney disease, or unspecified chronic kidney disease (principal); I50.23 Acute on chronic systolic (congestive) heart failure; E11.22 Type 2 diabetes mellitus with diabetic chronic kidney disease; N18.3 Chronic kidney disease, stage 3 (moderate); E11.65 Type 2 diabetes mellitus with hyperglycemia; R18.8 Other ascites; E78.5 Hyperlipidemia, unspecified; E66.01 Morbid (severe) obesity due to excess calories; Z68.43 Body mass index [BMI] 50.0-59.9, adult; Z71.3 Dietary counseling and surveillance; G47.30 Sleep apnea, unspecified; J44.9 Chronic obstructive pulmonary disease, unspecified; Z79.4 Long term (current) use of insulin; Z91.11 Patient's noncompliance with dietary regimen; Z82.49 Family history of ischemic heart disease and other diseases of the circulatory system
CPT/HCPCS: 71045; 80048; 80053; 81003; 82948; 83036; 83735; 83880; 84484; 85027; 85610; 85730; 94640; 94640 76; 99202; 99281; 99285; J1815; J1940